=== PATIENT | female | born 1955 | race Caucasian/White ===

== ENCOUNTER → 2021-06-22 09:46 | Outpatient (CLI) | payer SELFPAY ==
--- NOTE | ~2021-06-22 | MR_ITS ---
EXAMINATION: MR renal wo con DATE: 06/22/2021 10:52 INDICATION: Asymptomatic microscopic hematuria. TECHNIQUE: Magnetic resonance imaging (MRI) of the abdomen was performed without intravenous contrast . Sequences included coronal T2-weighted FS FSE, coronal and axial FIESTA FS, coronal LAVA-flex, axia l LAVA, axial T2-weighted FSE, axial T1-weighted dual-echo FSPGR, axial STIR FSE, and axial DWI. COMPARISON: None. FINDINGS: There are cysts in the liver measuring up to 14 mm. The gallbladder is normal. Calcifications in the spleen are consistent with old granulomatous disease. The pancreas and adrenal glands are normal. The re is a 2 mm cyst in right kidney. There is severe atrophy of left kidney. There is a moderate-sized sliding hiatal hernia. There are no dilated loops of bowel. There are no pathologically enlarged lymp h nodes. There is no free intraperitoneal fluid. IMPRESSION: 1. Severe atrophy of left kidney. 2. Moderate-sized sliding hiatal hernia. Reviewed, dictated and finalized at location E. PROFESSOR
== END ==
PROVIDERS: PCP Family Medicine; Visit Provider Physician Assistant Medical
DX: R31.29 Other microscopic hematuria (principal); R93.5 Abnormal findings on diagnostic imaging of other abdominal regions, including retroperitoneum; K44.9 Diaphragmatic hernia without obstruction or gangrene
CPT/HCPCS: 74181

== ENCOUNTER → 2021-09-11 12:43 | Outpatient (CLI) | payer MEDICARE, SELFPAY ==
--- NOTE | ~2021-09-11 | CT_ITS ---
EXAMINATION: CT abdomen pelvis wo/w con DATE: 09/11/2021 13:33 INDICATION: Asymptomatic hematuria. Left renal atrophy. TECHNIQUE: Computed tomography (CT) of the abdomen and pelvis was performed without intravenous contr ast. CT of the abdomen and pelvis was then performed with a total of 130 mL Omnipaque-350 intravenous contrast using a double-bolus technique for simultaneous opacification of the renal parenchyma and r enal collecting system. Automated exposure control and iterative reconstruction technique were employ ed. The dose-length product was 1641.44 mGy-cm. COMPARISON: Renal MR dated 06/22/2021 FINDINGS: Mild discoid atelectasis in the left lower lobe. Calcified right middle lobe nodule along with multip le hepatic and splenic calcific lesions consistent with old granulomatous disease. Heart size is norm al. Atherosclerotic coronary artery calcific lesion. No pericardial or pleural effusion. Small to mod erate-sized sliding-type hiatal hernia. Multiple low-attenuation nonenhancing hepatic cysts measuring up to 1.2 cm in maximal diameter. Pancreas and bilateral adrenal glands are normal. Tiny nonenhancin g cyst at the upper pole of the right kidney. Severe left renal atrophy but with enhancement of the r emaining left renal parenchyma symmetric to that of the right kidney. No urolithiasis. Bilateral paulina l collecting systems and ureters are opacified in their entirety with no evident urothelial irregular ities. Bladder is normal. The uterus is not identified and has likely been surgically resected. Moder ate amount of stool scattered throughout the colon. No abnormal bowel wall thickening or obstruction. Normal appendix. No free intraperitoneal gas or fluid. No pathologically enlarged abdominal or pelvi c lymphadenopathy. Moderate spondylosis in the lower thoracic spine and lumbosacral junction with mil d intervening lumbar spondylosis. IMPRESSION: 1. Severe left renal atrophy. No evident urolithiasis nor lesions suspicious for malignancy. 2. Small to moderate-sized sliding-type hiatal hernia. Reviewed, dictated and finalized at location A. IMPRESSION: 1. Severe left renal atrophy. No evident urolithiasis nor lesions suspicious fo r malignancy. 2. Small to moderate-sized sliding-type hiatal hernia.
[2021-09-11 13:09] LABS: Estimated Glomerular Filt Rate > 60
== END ==
PROVIDERS: PCP Family Medicine
DX: R31.21 Asymptomatic microscopic hematuria (principal); N26.1 Atrophy of kidney (terminal); K44.9 Diaphragmatic hernia without obstruction or gangrene
CPT/HCPCS: 74178; Q9967

== ENCOUNTER 2022-03-03 11:43 | Observation (INO) | payer MEDICARE, SELFPAY ==
[2022-03-03] VITALS (10 sets, daily range): BP systolic 155–179; BP diastolic 73–94; PULSE 67–88; RESP 16–20; TEMP 36.1–36.9; O2SAT 97–100; BMI 25.2
--- NOTE | ~2022-03-03 | NM_ITS ---
EXAMINATION: NM stress w perf spect multi DATE: 03/04/2022 10:28 INDICATION: Chest pain TECHNIQUE: Rest images were obtained following intravenous administration of 10.8 mCi Tc99m tetrofosm in (Guidefitter). The patient performed an exercise activity. At peak exercise, 33.7 mCi Tc99m tetrofosmi n (Myoview) was administered intravenously, and stress images were obtained. Data was reconstructed i nto short axis and horizontal and vertical long axis SPECT images. Gated SPECT images were also obtai jesse. COMPARISON: None. FINDINGS: There is normal left ventricular perfusion without definite evidence of reversible or fixed perfusion abnormality to suggest ischemia or infarction. There is normal left ventricular chamber size, wall motion and ejection fraction. Left ventricular ejection fraction measures >70%. IMPRESSION: 1. Normal myocardial perfusion at rest and during stress. 2. Left ventricular ejection fraction measuring >70%. Reviewed, dictated and finalized at location A.
--- NOTE | ~2022-03-03 | XR_ITS ---
XR chest 1V portable 03/03/2022 12:35 Indication: Chest pain. Diaphoresis. Procedure: AP portable chest Comparison: No prior studies for comparison. Findings: Heart size normal. There are interstitial infiltrates in the mid and lower lungs. No pleura l effusion or pneumothorax. No acute osseous abnormality. Impression: 1: Bilateral interstitial infiltrates of the mid and lower lungs which may reflect mild edema or atyp ical pneumonia. Reviewed, dictated and finalized at location B. Impression: 1: Bilateral interstitial infiltrates of the mid and lower lungs which may refl ect mild edema or atypical pneumonia.
--- NOTE | 2022-03-03 11:48 | ECG_ITS ---
Measurements Intervals Ezel Rate: 88 P: 62 ID: 143 QRS: 31 QRSD: 86 T: 81 QT: 350 QTc: 425 Interpretive Statements SINUS RHYTHM LEFT ATRIAL ENLARGEMENT [-0.15mV P WAVE IN V1/V2] DIFFUSE NONSPECIFIC ST & T-WAVE ABNORMALITY ABNORMAL ECG NO PREVIOUS ECG AVAILABLE FOR COMPARISON Electronically Signed On 03-03-2022 16:18:48 CDT by Jackson Bennett M.D.
[2022-03-03 12:24] LABS: Basophils Absolute Auto 0.1 K/mm3 (0.0-0.1); Basophils Percent Auto 0.5 % (0.2-1.2); Eosinophils Absolute Auto 0.2 K/mm3 (0-0.3); Eosinophils Percent Auto 1.9 % (0-4.4); Hematocrit 45.5 % (37.0-47.0); Hemoglobin 15.4 g/dL (12.0-15.0); Immature Granulocyte Absolute 0.03 K/mm3 (0.00-0.031); Immature Granulocyte Percent A 0.3 % (0-0.5); Lymphocytes Percent Auto 18.6 % (18.3-44.2); Mean Corpuscular HGB Conc 33.8 g/dl (32-36); Mean Corpuscular Hemoglobin 28.9 pg (26-34); Mean Corpuscular Volume 85.4 fl (80-100); Mean Platelet Volume 9.9 fl (7.4-10.4); Monocytes Absolute Auto 0.3 K/mm3 (0.1-0.6); Monocytes Percent Auto 3.6 % (2.6-8.5); Neutrophils Absolute Auto 6.9 K/mm3 (1.3-6.7); Neutrophils Percent Auto 75.1 % (45.5-73.1); Platelet Count Result 297 k/mm3 (150-375); Red Blood Count 5.33 M/mm3 (4.2-5.4); Red Cell Distribution Width 12.3 % (11.5-14.5); White Blood Count 9.1 K/mm3 (4.5-10.0)
--- NOTE | 2022-03-03 12:32 | ED.GENADULT ---
HPI - General Adult General Chief complaint: Chest Pain Stated complaint: chest pain Time Seen by Provider: 03/03/22 12:06 History of Present Illness HPI narrative: This is a 66-year-old female with history of hypertension high cholesterol and tobacco use presents to ED after an episode of chest pain. The chest pain occurred in the evening 2 days ago. She was watching TV and then started to experience a stabbing pain on the left side of her chest that radiated to her neck into her arm. His 6 out 10 intensity, sudden in onset and constant. She took a Xanax but she was concerned it might be anxiety and after 45 minutes the pain had resolved. She never experienced pain like this before. There are no exacerbating or alleviating factors. She did become diaphoretic. She denies nausea vomiting or exertional component. She denies any other complaints over the last week and has been feeling well overall. She is not coming 2 days ago because the pain resolved but then she began worried as she spoke to her friends and they told her she might be having a heart attack. Related Data Allergies Allergy/AdvReac Type Severity Reaction Status Date / Time No Known Allergies Allergy Verified 03/03/22 12:04 Review of Systems Review of Systems: CONSTITUTIONAL: Denies night sweats. EYES: No eye pain ENT: Denies rhinorrhea CARDIOVASCULAR: Denies palpitations RESPIRATORY: Denies hemoptysis GASTROINTESTINAL: Denies hematemesis GENITOURINARY: Denies hematuria. SKIN: Denies rash MUSCULOSKELETAL: Denies myalgia. NEUROLOGIC: Denies weakness. PSYCHIATRIC: Denies delusions PMFSH Past Medical History Medical History (Updated 03/03/22 @ 15:15 by Chavez Lawrence MD) Anxiety Hypertension Left renal atrophy Mixed hyperlipidemia Seizure Surgical History Surgical History (Updated 03/03/22 @ 14:17 by Grecia Yoder PA-C) History of section History of hysterectomy Family History Family History Other Alcohol abuse by patient's mother Breast cancer Depression Diabetes mellitus FH: kidney cancer Heart disease Hypertension Social History Social History Social History: Surrogate medical decision maker: Code status: Full code. Tobacco type: cigarettes Alcohol intake: current Additional living arrangements comments: Lives in [place]. Additional occupation/education comments: Retired. Exam Narrative: APPEARANCE: No apparent distress. Head atraumatic. EYES: PERRLA/EOMI, NOSE: Normal no drainage NECK: Supple, Trachea midline RESPIRATORY: CTAB, No increased work of breathing. CARDIOVASCULAR: S1S2 appreciated ABDOMINAL: Soft, nontender, nondistended, MUSCULOSKELETAl: No obvious deformities NEURO: Alert. Moving 4/4 extremities SKIN:: Warm, dry. Normal color PSYCHIATRIC: Normal affect Course Vital Signs Vital signs: Vital Signs Temperature 98.5 F 03/03/22 11:54 Pulse Rate 88 03/03/22 11:54 Respiratory Rate 16 03/03/22 11:54 Blood Pressure 158/84 H 03/03/22 11:54 Pulse Oximetry 98 03/03/22 11:54 Temperature 98.5 F 03/03/22 11:54 Pulse Rate 87 03/03/22 12:03 Respiratory Rate 16 03/03/22 11:54 Blood Pressure 158/84 H 03/03/22 11:54 Pulse Oximetry 98 03/03/22 11:54 Medical Decision Making MDM Narrative Medical decision making narrative: This is a 66-year-old female presenting ED with an episode of chest pain 2 days ago. She has risk factors and a concerning story for ACS. EKG interpretation: Rhythm [sinus], Rate 88], [place] -[normal], TN -[normal], QRS [narrow], QTC [normal], T waves -[negative for concerning inversions], ST Segments - ST segment depressions in V4 through V6 Final interpretations: [Normal Sinus Rhythm] lab work was within normal limits. Initial troponin was negative. Chest x-ray showed bilateral interstitial infil
[2022-03-03] MEDS: ASPIRIN 81 MG CHEWABLE TABLET 324 MG PO (12:36)
[2022-03-03 12:38] LABS: Partial Thromboplastin Time 29.9 SECONDS (22.3-36.8)
[2022-03-03 12:39] LABS: Alanine Aminotransferase 17 U/L (6-35); Albumin Level 4.1 g/dL (3.5-5.1); Alkaline Phosphatase 94 U/L (38-126); Anion Gap 11 mmol/L (8-16); Aspartate Amino Transferase 22 U/L (14-36); Bilirubin,Total 0.4 mg/dL (0.2-1.3); Blood Urea Nitrogen 10 mg/dL (7-17); Calcium 8.6 mg/dL (8.4-10.2); Carbon Dioxide 22 mmol/L (22-30); Chloride 105 mmol/L (98-107); Estimated CRCL calculation 64 ml/min; Estimated Glomerular Filt Rate > 60; Glucose 105 mg/dL (65-110); Lipase 77 U/L (23-300); Potassium 3.8 mmol/L (3.4-5.0); Sodium 138 mmol/L (137-145)
[2022-03-03 12:51] LABS: Troponin I < 0.012 ng/mL (0.000-0.034)
--- NOTE | 2022-03-03 14:15 | PM.IMHP ---
H&P: HPI History of Present Illness Date/Time: 03/03/22 14:15 Chief Complaint: Chest pain. Narrative: This is a 66-year-old female smoker with hypertension and hyperlipidemia who presented to the emergency department from home for evaluation of chest pain. Two days ago simply while sitting down watching television she developed an aching and occasionally sharp and stabbing pain in the left anterior chest radiating into the left side of the neck and into the left arm. She was diaphoretic with the onset of the pain in her symptoms lasted approximately 45 minutes before resolving. Initially she thought she was anxious and took Xanax. After speaking with her family members about what happened, they encouraged her to come in for evaluation. With further questioning she mentions having a couple of similar episodes over the past 1 year however the symptoms were typically fleeting. The symptoms have never occurred with activity. Vital signs were stable on arrival to the emergency department and her labs were reassuring with negative troponin. EKG however showed diffuse nonspecific ST-T wave abnormalities and she is being admitted in this setting for further monitoring and Cardiology consultation. She has not had a recurrence of the discomfort in the last 2 days and overall she is feeling fine at this time. It should be noted that her chest x-ray showed findings of possible edema versus atypical pneumonia however she has no symptoms to suggest pulmonary infection. She specifically denies fever, chills, sweats, sinus congestion, sore throat, cough, pleuritic pain, orthopnea, paroxysmal nocturnal dyspnea, nausea, vomiting, and lower extremity edema. Review of Systems Review of Systems: Twelve systems were reviewed and are negative except for as per HPI. [facility] Past Medical History Medical History (Updated 03/03/22 @ 22:38 by Grecia Yoder PA-C) Anxiety Hypertension Left renal atrophy Mixed hyperlipidemia Single seizure Surgical History Surgical History (Updated 03/03/22 @ 14:17 by Grecia Yoder PA-C) History of section History of hysterectomy Family History Family History Mother Breast cancer Depression Alcohol abuse by patient's mother Hypertension Father Diabetes mellitus Hypertension FH: kidney cancer Social History Social History (Updated 03/03/22 @ 22:39 by Grecia Yoder PA-C) Social History: Surrogate medical decision maker: Vitor Ivory, brother. Code status: Full code. Smoking packs per day: 0.5 Smoking cigarettes per day: 10.0 Years smoked: 20 Smoking pack-years: 10.00 Smoking status: Current some day smoker Tobacco type: cigarettes Alcohol intake: never Substance use type: marijuana and other Other substance usage details: edibles Additional living arrangements comments: Lives in [place]. Additional occupation/education comments: Retired. Spiritual care concerns: No Has the Lack of Transportation Kept You From Medical Appointments or From Getting Medications?: No Within the Past 12 Months, Were You Worried Whether Your Food Would Run Out Before You Got Money to Buy More?: Never True What is Your Housing Situation Today?: I Have Housing Are You Worried That in the Next 2 Months, You May Not Have Your Own Housing to Live In?: No Do You Have Trouble Paying Your Heating Or Electricity Bill?: No Do You Have Trouble Paying For Medicines?: No Are You Currently Unemployed and Looking for Work?: No Highest Level of Education Completed: High School Diploma/GED Do You Have Trouble With Childcare or the Care of a Family Member?: No Meds Home Medications and Allergies Home Medications Medication Instructions Recorded Confirmed Type amlodipine 5 mg tablet 5 mg PO DAILY #30 tabs 08/02/21 03/03/22 Rx atorvastatin 20 mg tablet 20 mg PO DAILY #30 tabs 08/02/21 03/03/22 Rx sertraline 50 mg
[2022-03-03 15:09] LABS: NT Pro B Type Natriuretic Pept 94 pg/mL (5-100)
[2022-03-03 15:13] LABS: Troponin I < 0.012 ng/mL (0.000-0.034)
--- NOTE | 2022-03-03 15:33 | PM.CNCAR ---
Assessment and Plan Assessment and plan (1) Chest pain: Code(s): R07.9 - Chest pain, unspecified Status: Acute Assessment and Plan: Resting pain, probably anxiety related. EKG shows sinus rhythm with LVH with ST-T changes. 1st Troponin negative. Trend troponin. If negative, obtain stress nuclear in AM. (2) Tobacco abuse: Code(s): Z72.0 - Tobacco use Status: Acute Assessment and Plan: Counseled regarding smoking cessation. (3) Mixed hyperlipidemia: Code(s): E78.2 - Mixed hyperlipidemia Status: Acute Assessment and Plan: Advise to maintain a low saturated fat diet. On Atorvastatin. (4) Hypertension: Code(s): I10 - Essential (primary) hypertension Status: Acute Assessment and Plan: High. Monitor and adjust BP medication as needed. Obtain echo. (5) Anxiety: Code(s): F41.9 - Anxiety disorder, unspecified Status: Acute History of Present Illness History of Present Illness Consult date/time: 03/03/22 15:33 Consult reason: chest pain Reason For Visit: Cardiac Eval Narrative: 66 yr old woman presents to ER with chest pain. She has a history of hypertension, dyslipidemia, smoking, anxiety. Reports that 2 nights ago she had resting sharp chest pain radiating down left arm and to jaw, and sweating lasting 15 minutes. No recurrence but she wanted to get evaluated so she came in today. She can walk 3 miles and more limted by knee pains than [place]. She smokes 1/2 ppd. Admits to having stress/anxiety and worse given both her parents in their mid 80's are aging. Denies orthopnea, PND, edema, dizziness, palpitations. Review of Systems Review of Systems: All systems reviewed & are unremarkable except as noted in HPI and below Constitutional: Constitutional: Reports as per HPI, Denies chills and Denies fever(s) Cardiovascular: Cardiovascular: Reports as per HPI, Reports chest pain, Denies irregular heart rhythm, Denies leg edema and Denies lightheadedness Respiratory: Respiratory: Reports as per HPI and Denies dyspnea Gastrointestinal: Gastrointestinal: Reports as per HPI and Denies abdominal pain Genitourinary: Genitourinary: Reports as per HPI and Denies dysuria Musculoskeletal: Musculoskeletal: Reports as per HPI and Reports arthralgias Neurologic: Reports as per HPI, Denies dizziness and Denies syncope [facility] Past Medical History Medical History (Updated 03/03/22 @ 15:15 by Chavez Lawrence MD) Anxiety Hypertension Left renal atrophy Mixed hyperlipidemia Seizure Surgical History Surgical History (Updated 03/03/22 @ 14:17 by Grecia Yoder PA-C) History of section History of hysterectomy Family History Family History Other Alcohol abuse by patient's mother Breast cancer Depression Diabetes mellitus FH: kidney cancer Heart disease Hypertension Social History Social History (Updated 03/03/22 @ 14:22 by Grecia Yoder PA-C) Social History: Surrogate medical decision maker: Code status: Full code. Tobacco type: cigarettes Alcohol intake: current Additional living arrangements comments: Lives in [place]. Additional occupation/education comments: Retired. Meds Home Medications and Allergies Home Medications Medication Instructions Recorded Confirmed Type amlodipine 5 mg tablet 5 mg PO DAILY #30 tabs 08/02/21 08/02/21 Rx atorvastatin 20 mg tablet 20 mg PO DAILY #30 tabs 08/02/21 08/02/21 Rx sertraline 50 mg tablet 50 mg PO DAILY #30 tabs 08/02/21 08/02/21 Rx lisinopril 10 mg tablet 10 mg PO DAILY #90 tabs 09/11/21 Rx Allergies Allergy/AdvReac Type Severity Reaction Status Date / Time No Known Allergies Allergy Verified 03/03/22 12:04 Vital Signs Vital Signs - 24 hr 03/03/22 11:54 03/03/22 12:03 03/03/22 15:10 Temperature 98.5 F Pulse Rate 88 87 67 Respiratory Rate 16 16 Blood Pres
--- NOTE | 2022-03-03 15:46 | ADMGEN ---
This patient, Mandy Ivory, was admitted to IMU Room 201-01. Patient/family oriented to hospital policies and general routines including ID bracelet, bed and alarms, visiting hours, pain management, procedures, bathroom and other care routines, personal items, smoking policy, room service/diet, and visiting hours. Information on how to activate the Rapid Response Team has been discussed. Patient/Family are encouraged to report perceived risks to care and to ask questions if they do not understand what they are told or what they should do.
[2022-03-03 18:37] LABS: Troponin I < 0.012 ng/mL (0.000-0.034)
[2022-03-04] VITALS (8 sets, daily range): BP systolic 138–147; BP diastolic 62–85; PULSE 56–73; RESP 18–20; TEMP 36.2–36.6; O2SAT 98–100
--- NOTE | 2022-03-04 | ECHO_ITS ---
Patient Info Name: Mandy Ivory Age: 66 years : 1955 Gender: Female Ht: 69 in Wt: 169 lbs BSA: 1.94 m2 HR: 56 bpm BP: 147 / 62 mmHg Heart Rhythm: Sinus Rhythm Technical Quality: Fair Exam Date: 03/04/2022 7:55 AM Exam Location: [facility] [place] Card Pulmonary Patient Status: Outpatient Admit Date: 03/03/2022 Staff Ordering Physician: Cruz Nguyen DO Outside Sales Associate: Karen Stewart RDCS Attending Provider: Nj Barahona MD Referring Physician: Patrick JAIME; Exam Type: CA echo doppler color flow Study Info Indications - hypertension R07.9 - Chest pain, unspecified Complete two-dimensional, color flow and Doppler transthoracic echocardiogram is performed. Summary 1. Complete two-dimensional, color flow and Doppler transthoracic echocardiogram is performed. 2. Left ventricular chamber dimension is normal. 3. Left ventricular systolic function is normal, estimated at 60-65%. 4. There is mildly increased left ventricular wall thickness. 5. The left ventricular diastolic function is grade I diastolic dysfunction. 6. E/e' 13 is mildly elevated. 7. No pulmonary hypertension, estimated pulmonary arterial systolic pressure is 30 mmHg. Left Ventricle E/e' 13 is mildly elevated. Left ventricular chamber dimension is normal. Left ventricular systolic function is normal, estimated at 60-65%. There is mildly increased left ventricular wall thickness. The left ventricular diastolic function is grade I diastolic dysfunction. Right Ventricle Right ventricular systolic function is normal and with normal TAPSE 1.9 cm. Right ventricular chamber dimension is normal. Left Atria Left atrial chamber dimension is normal. Right Atria Right atrial chamber dimension is normal. Aortic Valve The aortic valve is trileaflet. There is no aortic valve stenosis. There is no aortic valve regurgitation. Pulmonic Valve There is no pulmonic regurgitation. Mitral Valve There is no mitral valve stenosis. There is no mitral valve regurgitation. Tricuspid Valve There is no tricuspid valve regurgitation. No pulmonary hypertension, estimated pulmonary arterial systolic pressure is 30 mmHg. Pericardium/Pleural There is no pericardial effusion. Inferior Vena Cava Normal inferior vena cava with >50% collapse upon inspiration consistent with normal right atrial pressure, 5 mmHg. Aorta The aortic root size at the sinus of Valsalva is normal. Left Ventricular Outflow Tract Name Value Normal LVOT 2D LVOT Diameter 2.0 cm LVOT Doppler LVOT Peak Gradient 2 mmHg LVOT Mean Gradient 1 mmHg LVOT VTI 16 cm LVOT VTI/AV VTI Ratio 0.6 LVOT Stroke Volume 51 ml LVOT CO 3.0 l/min LVOT CI 1.5 l/min/m2 Pulmonic Valve Name Value Normal
[2022-03-04 05:09] LABS: Hematocrit 42.6 % (37.0-47.0); Hemoglobin 14.3 g/dL (12.0-15.0); Mean Corpuscular HGB Conc 33.6 g/dl (32-36); Mean Corpuscular Hemoglobin 27.9 pg (26-34); Mean Platelet Volume 10.3 fl (7.4-10.4); Platelet Count Result 286 k/mm3 (150-375); Red Blood Count 5.13 M/mm3 (4.2-5.4); White Blood Count 7.5 K/mm3 (4.5-10.0)
[2022-03-04 05:20] LABS: Alanine Aminotransferase 13 U/L (6-35); Albumin Level 3.6 g/dL (3.5-5.1); Alkaline Phosphatase 82 U/L (38-126); Anion Gap 11 mmol/L (8-16); Aspartate Amino Transferase 19 U/L (14-36); Bilirubin,Total 0.6 mg/dL (0.2-1.3); Blood Urea Nitrogen 10 mg/dL (7-17); Calcium 8.3 mg/dL (8.4-10.2); Carbon Dioxide 24 mmol/L (22-30); Chloride 103 mmol/L (98-107); Cholesterol 159 mg/dL (0-200); Estimated CRCL calculation 72 ml/min; Estimated Glomerular Filt Rate > 60; Glucose 86 mg/dL (65-110); HDL Direct 32 mg/dL; Potassium 3.3 mmol/L (3.4-5.0); Sodium 138 mmol/L (137-145); Triglycerides 112 mg/dL (<150)
[2022-03-04 05:31] LABS: LDL Cholesterol Direct 102 mg/dL
--- NOTE | 2022-03-04 08:06 | PM.PNCARD ---
Progress Note: A&P Assessment and Plan (1) Chest pain: Code(s): R07.9 - Chest pain, unspecified Status: Acute Assessment and Plan: Resting pain, probably anxiety related. EKG shows sinus rhythm with LVH with ST-T changes. All 3 sets of Troponin are negative. Obtain stress nuclear in today. If negative, may d/c home and f/u with me in 1-2 weeks. (2) Tobacco abuse: Code(s): Z72.0 - Tobacco use Status: Acute Assessment and Plan: Counseled regarding smoking cessation. (3) Hypertension: Code(s): I10 - Essential (primary) hypertension Status: Acute Assessment and Plan: High. Lisinopril causes cough. Start Losartan 25 mg daily. Obtain echo today. (4) Mixed hyperlipidemia: Code(s): E78.2 - Mixed hyperlipidemia Status: Acute Assessment and Plan: On Atorvastatin. Advise to maintain a low saturated fat diet. (5) Anxiety: Code(s): F41.9 - Anxiety disorder, unspecified Status: Acute Subjective Date/time seen: 03/04/22 08:06 Interval history: Denies any chest pain or sob. Exam Const: General: cooperative, healthy appearing and comfortable Resp: Auscultation: clear to auscultation bilaterally, no crackles, no rales, no rhonchi and no wheezes Cardio: Jugular venous distension: no JVD Rate: regular rate Rhythm: regular rhythm Heart sounds: no murmurs Peripheral pulses: dorsalis pedis present GI: GI Palp: No abdominal tenderness and Yes Soft to palpation Neuro: General: oriented to person, oriented to place and oriented to time Extrem: Right lower extremity: no edema Left lower extremity: no edema Objective Data Vital Signs Vital Signs: Vital Signs - 24 hr 03/03/22 11:54 03/03/22 12:03 03/03/22 15:10 Temperature 98.5 F Pulse Rate 88 87 67 Respiratory Rate 16 16 Blood Pressure 158/84 H 171/94 H Pulse Oximetry 98 97 Oxygen Delivery 03/03/22 16:26 03/03/22 16:00 03/03/22 16:00 Temperature 96.9 F L Pulse Rate 68 69 Respiratory Rate 20 Blood Pressure 168/73 H Pulse Oximetry 98 Oxygen Delivery Room Air 03/03/22 18:00 03/03/22 19:59 03/03/22 20:00 Temperature 98.3 F Pulse Rate 68 67 69 Respiratory Rate 18 Blood Pressure 179/78 H Pulse Oximetry 100 Oxygen Delivery 03/03/22 20:00 03/03/22 21:38 03/03/22 23:17 Temperature 97.3 F L Pulse Rate 69 68 68 Respiratory Rate 18 18 Blood Pressure 155/76 H Pulse Oximetry 100 100 Oxygen Delivery Room Air 03/04/22 00:00 03/04/22 00:00 03/04/22 01:43 Temperature Pulse Rate 62 62 61 Respiratory Rate 18 Blood Pressure Pulse Oximetry 100 Oxygen Delivery Room Air 03/04/22 03:57 03/04/22 04:00 03/04/22 04:00 Temperature 98 F Pulse Rate 65 62 62 Respiratory Rate 20 20 Blood Pressure 147/62 H Pulse Oximetry 100 100 Oxygen Delivery Room Air 03/04/22 05:54 Temperature Pulse Rate 56 L Respiratory Rate Blood Pressure Pulse Oximetry Oxygen Delivery Intake/Output Intake/Output: Intake & Output 03/01/22 03/02/22 03/03/22 03/04/22 23:59 23:59 23:59 23:59 Intake Total 540 Balance 540 Meds/Results Medications: Active Medications Generic Name Dose Route Start Last Admin Trade Name Freq PRN Reason Stop Dose Admin Amlodipine Besylate 5 mg 03/04/22 09:00 Amlodipine Besylate 5 Mg Tablet PO DAILY [facility] Aspirin 81 mg 03/04/22 09:00 Aspirin 81 Mg Enteric Tablet PO DAILY [facility] Atorvastatin Calcium 20 mg 03/04/22 09:00 Atorvastatin 20 Mg Tablet PO DAILY [facility] Losartan Potassium 25 mg 03/04/22 09:00 Losartan Potassium 25 Mg Tablet PO DAILY [facility] Perflutren Lipid Microsphere 0 ml 03/03/22 14:44 Perflutren Lipid Microspheres 1.5 Ml Vial Diluted To 10 Ml Total Volume IV PUSH 03/05/22 14:44 ONCE PRN adequate visualization Protocol Sertraline HCl 50 mg 03/04/22 09:00 Sertraline Hcl 50 Mg Tablet PO DA
[2022-03-04] MEDS: ATORVASTATIN 20 MG TABLET PO (08:17)
[2022-03-04] MEDS: amLODIPine BESYLATE 5 MG TABLET PO (08:17)
[2022-03-04] MEDS: LOSARTAN POTASSIUM 25 MG TABLET PO (08:17)
[2022-03-04] MEDS: SERTRALINE HCL 50 MG TABLET PO (08:17)
[2022-03-04] MEDS: ASPIRIN 81 MG ENTERIC TABLET PO (08:17)
--- NOTE | 2022-03-04 08:30 | EST_ITS ---
Patient Info Name: Mandy Ivory Age: 66 years : 1955 Gender: Female Ht: 69 in Wt: 171 lbs BSA: 1.95 m2 HR: 63 bpm BP: 159 / 66 mmHg Heart Rhythm: Sinus Rhythm Exam Date: 03/04/2022 9:37 AM Exam Location: [facility] Stress Patient Status: Outpatient Admit Date: 03/03/2022 Staff Ordering Physician: Cruz Nguyen DO Attending Provider: Nj Barahona MD Exercise Technologist: Nunu Harmon CT Exercise Physician: Cruz Nguyen DO Exam Type: CA stress test treadmill w NM Study Info Indications R07.9 - Chest pain, unspecified A nuclear stress test was performed. Summary 1. 1. Negative Hemant exercise stress test for ischemic ST changes by ECG criteria. 2. 2. Good functional capacity, achieving 9 METs of workload. 3. 3. Baseline hypertension with hypertensive response to exercise. 4. 4. Appropriate HR response to exercise. 5. 5. Appropriate HR recovery at 1 minute post exercise. 6. 6. Nuclear scan to follow and will be reported separately. Please correlate with it. 7. 7. Patient informed of the above results. Protocol: Ehmant Stress ECG Details Stage: REST Duration (min): 1 min : 46 sec Speed (mph): 0.0 Grade (%): 0 HR (bpm): 66 SBP (mmHg): 159 DBP (mmHg): 66 METS: --- Stage: REST Duration (min): 12 min : 47 sec Speed (mph): 0.0 Grade (%): 0 HR (bpm): 59 SBP (mmHg): 159 DBP (mmHg): 66 METS: --- Stage: STAGE 1 Duration (min): 1 min : 0 sec Speed (mph): 1.7 Grade (%): 10 HR (bpm): 87 SBP (mmHg): 159 DBP (mmHg): 66 METS: --- Stage: STAGE 1 Duration (min): 2 min : 0 sec Speed (mph): 1.7 Grade (%): 10 HR (bpm): 90 SBP (mmHg): 159 DBP (mmHg): 66 METS: --- Stage: STAGE 1 Duration (min): 3 min : 0 sec Speed (mph): 1.7 Grade (%): 10 HR (bpm): 99 SBP (mmHg): 205 DBP (mmHg): 81 METS: --- Stage: STAGE 2 Duration (min): 1 min : 0 sec Speed (mph): 2.5 Grade (%): 12 HR (bpm): 112 SBP (mmHg): 216 DBP (mmHg): 84 METS: --- Stage: STAGE 2 Duration (min): 2 min : 0 sec Speed (mph): 2.5 Grade (%): 12 HR (bpm): 120 SBP (mmHg): 213 DBP (mmHg): 89 METS: --- Stage: STAGE 2 Duration (min): 3 min : 0 sec Speed (mph): 2.5 Grade (%): 12 HR (bpm): 129 SBP (mmHg): 213 DBP (mmHg): 89 METS: --- Stage: STAGE 3 Duration (min): 1 min : 0 sec Speed (mph): 3.4 Grade (%): 14 HR (bpm): 141 SBP (mmHg): 213 DBP (mmHg): 89 METS: --- Stage: STAGE 3 Duration (min): 1 min : 14 sec Speed (mph): 3.4 Grade (%): 14 HR (bpm): 141 SBP (mmHg): 213 DBP (mmHg): 89 METS: --- Stage: RECOVERY Duration (min): 0 min : 45 sec Speed (mph): 0.0 Grade (%): 0 HR (bpm): 132 SBP (mmHg): 253 DBP (mmHg): 89 METS: --- Stage: RECOVERY Duration (min): 1 min : 45 sec Speed (mph): 0.0 Grade (%)
--- NOTE | 2022-03-04 08:50 | PC.NURSE ---
Pt to cardiology lab for stress test via wheelchair
--- NOTE | 2022-03-04 10:40 | PC.NURSE ---
Pt returned from nuclear medicine stress test via wheelchair. No issues noted
[2022-03-04] MEDS: POTASSIUM CHLORIDE 20 MEQ PACKET (FOR LIQUID) 40 MEQ PO (11:22)
--- NOTE | 2022-03-04 11:34 | PM.DS ---
DS: Admitting Diagnosis Discharge Date March 04, 2022 Admitting Diagnosis chest pain DS: Discharge Diagnosis Discharge Diagnosis (1) Chest pain: Code(s): R07.9 - Chest pain, unspecified Status: Acute (2) Abnormal EKG: Code(s): R94.31 - Abnormal electrocardiogram [ECG] [EKG] Status: Acute (3) Hypertension: Code(s): I10 - Essential (primary) hypertension Status: Acute (4) Mixed hyperlipidemia: Code(s): E78.2 - Mixed hyperlipidemia Status: Acute DS: Summary Hospital Course Hospital Course: patient came in with chest pain. Cardiac workup was essentially negative. Blood pressure was little high should be put on losartan in addition to her home meds. Otherwise she is stable and can be discharged. Follow up with Dr. Nguyen Cardiology. Time Spent with Patient Time attestation: Total time spent providing and/or coordinating discharge services: Exam Narrative: General: Well-developed female sitting in a chair at the side of the bed in no distress. Weight: 77.6 kilograms. BMI: 25.3. HEENT: PERRL, EOMI. Sclera anicteric. Oral mucosa moist. Oropharynx clear. Neck: Supple. No JVD or obvious carotid bruits. Respiratory: Lungs are clear to auscultation bilaterally. Cardiovascular: Regular rate and rhythm with S1-S2. No tenderness to palpation over the chest wall. Gastrointestinal: Abdomen is soft, nontender, and nondistended with positive bowel sounds. Skin: Warm and dry. No rash or lesions on limited exam. Extremities: No cyanosis, clubbing, or edema. Radial and pedal pulses intact. Neurological: Alert. Cranial nerves 2-12 are grossly intact. No gross focal deficits to casual conversation. Psychiatric: Pleasant and cooperative with normal mood and affect. Judgment and insight intact. DS: Data Data Completed and Pending Labs on day of discharge: Labs from last 24 hours 03/04/22 03/04/22 03/04/22 04:30 04:30 04:30 WBC 7.5 RBC 5.13 Hgb 14.3 Hct 42.6 MCV 83.0 MCH 27.9 MCHC 33.6 RDW 12.0 Plt Count 286 MPV 10.3 Immature Gran % (Auto) Neut % (Auto) Lymph % (Auto) Kay % (Auto) Eos % (Auto) Baso % (Auto) Lymph # (Auto) Kay # (Auto) Eos # (Auto) Baso # (Auto) Abs Immat Gran (auto) Absolute Neuts (auto) Absolute Nucleated RBC Nucleated RBC % PT INR APTT Sodium 138 Potassium 3.3 L Chloride 103 Carbon Dioxide 24 Anion Gap 11 BUN 10 Creatinine 0.70 Estim Creat Clear Calc 72 Estimated GFR > 60 Glucose 86 Calcium 8.3 L Magnesium 2.0 Total Bilirubin 0.6 AST 19 ALT 13 Alkaline Phosphatase 82 Troponin I NT-Pro-B Natriuret Pep Total Protein 6.0 L Albumin 3.6 Triglycerides 112 Cholesterol 159 LDL Cholesterol Direct 102 HDL Direct 32 Lipase TSH (Reflex) 1.710 03/03/22 03/03/22 03/03/22 17:56 14:43 14:43 WBC RBC Hgb Hct MCV MCH MCHC RDW Plt Count MPV Immature Gran % (Auto) Neut % (Auto) Lymph % (Auto) Kay % (Auto) Eos % (Auto) Baso % (Auto) Lymph # (Auto) Kay # (Auto) Eos # (Auto) Baso # (Auto) Abs Immat Gran (auto) Absolute Neuts (auto) Absolute Nucleated RBC Nucleated RBC % PT INR APTT Sodium Potassium Chloride Carbon Dioxide Anion Gap BUN Creatinine Estim Creat Clear Calc Estimated GFR Glucose Calcium Magnesium Total Bilirubin AST ALT Alkaline Phosphatase Troponin I < 0.012 < 0.012 NT-Pro-B Natriuret Pep 94 Total Protein Albumin Triglycerides Cholesterol LDL Cholesterol Direct HDL Direct Lipase TSH (Reflex) 03/03/22 03/03/22 03/03/22 12:19 12:19 12:19 WBC 9.1 RBC 5.33 Hgb 15.4 H Hct 45.5 MCV 85.4 MCH 28.9 MCHC 33.8 RDW 12.3 Plt Count 297 MPV 9.9
== END 2022-03-04 12:34 | disposition home or self-care (01) ==
LOC: ANHED 12:42 → ANHIMU 15:15
PROVIDERS: Emergency Medicine; Physician Assistant; Admitting Provider Internal Medicine; Emergency Provider Emergency Medicine; PCP Family Medicine; Visit Provider Chiropractor
DX: R07.9 Chest pain, unspecified (principal); R94.31 Abnormal electrocardiogram [ECG] [EKG]; I51.89 Other ill-defined heart diseases; E78.2 Mixed hyperlipidemia; E78.00 Pure hypercholesterolemia, unspecified; R91.8 Other nonspecific abnormal finding of lung field; R61 Generalized hyperhidrosis; F41.9 Anxiety disorder, unspecified; F17.210 Nicotine dependence, cigarettes, uncomplicated; F10.90 Alcohol use, unspecified, uncomplicated; Z87.898 Personal history of other specified conditions; Z79.82 Long term (current) use of aspirin; Z79.899 Other long term (current) drug therapy; Z82.49 Family history of ischemic heart disease and other diseases of the circulatory system; Z84.89 Family history of other specified conditions
CPT/HCPCS: 36415; 71045; 78452; 80053; 80061; 83690; 83735; 83880; 84443; 84484; 85025; 85027; 85610; 85730; 93005; 93017; 93306; 99285; A9270; A9502; G0378

== ENCOUNTER → 2023-04-30 09:13 | Outpatient (CLI) | payer MEDICARE, SELFPAY ==
--- NOTE | ~2023-04-30 | MMUS_ITS ---
EXAMINATION: MM diagnostic eduar BI w sameera, US breast BI limited HISTORY: Mastodynia TECHNIQUE: Full-field and spot ML, MLO and CC 3-D tomosynthesis images of both breasts were performed and synthetic 2-D images were generated. CAD analysis was submitted and interpreted. High resolution bilateral upper outer and lower-outer quadrant breast ultrasound was performed. COMPARISON: 11/06/2008 and 06/25/2007 outside bilateral mammogram examinations BREAST PARENCHYMAL COMPOSITION: There are scattered areas of fibroglandular density. FINDINGS: MAMMOGRAPHIC FINDINGS: Bilateral partially obscured subcentimeter nodular densities suggested in the outer aspect of each br east ultrasound examination was performed for further evaluation. No or architectural distortion, malignant calcification, skin thickening or retraction of either jerome st is detected. ULTRASOUND: Right breast: 9:00 5 cm from nipple: 1.8 x 4.4 x 5 mm cyst 9:00 4.5 cm from nipple: 3.3 x 3.6 mm hypoechoic area without internal vascularity or posterior shado wing 9:00 4 cm from nipple: 2.7 x 4.4 x 6.4 mm parallel circumscribed hypoechoic lesion without internal v ascularity or posterior shadowing 10:00 3 cm from nipple: 6.5 x 5.4 x 8 mm heterogeneous mixed solid and fatty lesion, without suspicio us shadowing 6 month follow-up mammographic and ultrasound examination of the right breast is recommended. Left breast: 1:00 5 cm from nipple: Oval circumscribed 2.9 x 4.4 mm hypoechoic lesion without internal vascularity or posterior shadowing, likely benign 2:00 5 cm from nipple: Septated approximately 4.2 x 7 mm cyst, with through transmission posterior en hancement, no internal vascularity, benign in appearance 6:00 subareolar area: 2.2 x 3.4 mm cyst IMPRESSION: 1. Probable benign findings 2. 6 month diagnostic right mammogram and right breast ultrasound follow-up are recommended BI-RADS category 3, probably benign findings. Reviewed, dictated and finalized at location A. LINE FIELD OPERATOR IMPRESSION: 1. Probable benign findings 2. 6 month diagnostic right mammogram and right breast ultrasound follow-up are recommended BI-RADS category 3, probably benign findings.
== END ==
PROVIDERS: PCP Nurse Practitioner Adult Health; Visit Provider Nurse Practitioner Adult Health
DX: N64.4 Mastodynia (principal); R92.8 Other abnormal and inconclusive findings on diagnostic imaging of breast
CPT/HCPCS: 76642; 77062; 77066; G0279

== ENCOUNTER 2023-07-23 11:01 | Outpatient (CLI) | payer MEDICARE, SELFPAY ==
--- NOTE | ~2023-07-23 | DEXA_ITS ---
Bone Density Report Name: ASHA KANG Age: 67 Sex: Female Ethnicity: White Date of : 1955 Indication: postmenopausal; screening for osteoporosis; hysterectomy; Referring Provider: Neymar Noel Study: Bone densitometry was performed. Exam Date: July 23, 2023 Accession number: [id number] Bone Density: Region BMD T-score Z-score Classification AP Spine (L1-L4) 1.009 -0.3 1.5 Normal Femoral Neck (Left) 0.620 -2.1 -0.4 Osteopenia Total Hip (Left) 0.736 -1.7 -0.4 Osteopenia Femoral Neck (Right) 0.671 -1.6 0.0 Osteopenia Total Hip (Right) 0.815 -1.0 0.3 Normal Total Hip Mean 0.776 -1.4 -0.1 Osteopenia World Health Organization criteria for BMD impression classify patients as: Normal (T-score at or above -1.0), Osteopenia (T-score between -1.0 and -2.5), or Osteoporosis (T-score at or below -2.5). 10-year Fracture Risk(1): Major Osteoporotic Fracture 11% Hip Fracture 1.9% Reported Risk Factors: [place] (), Neck BMD=0.620, BMI=26.5 (1) FRAX(R) Version 3.08. Fracture probability calculated for an untreated patient. Fracture probability may be lower if the patient has received treatment. Clinical Information Provided by Patient: Has the following medical conditions: Hysterectomy Patient maximum height was 68.5 Menopause Age: 51 No regular weight bearing exercise Does not regularly consume dairy products Drinks caffeinated beverages Onset of menses at age 14 Number of children 2 Impression: The patient has low bone mass, based on the Left Femoral Neck T-score. The patient has an estimated ten-year risk of hip fracture of 1.9% and an estimated ten-year risk of major fracture of 11%, based on the WHO FRAX algorithm. Discussion: BONE DENSITY IS LOW AT ONE OR MORE SKELETAL SITES. This patient's lowest T-score is low at one or more skeletal sites. It meets the World Health Organization's (WHO) criteria for ?low bone mass? (T-score between -1.0 and -2.5). The patient's 10-year risk of fracture as calculated by FRAX is less than the threshold where pharmacological therapy is recommended by the National Osteoporosis Foundation (NOF). However, all treatment decisions require clinical judgment and consideration of individual patient factors, including patient preferences, comorbidities, previous drug use, risk factors not captured in the FRAX model (e.g., frailty, falls, vitamin D deficiency, increased bone turnover, interval significant decline in bone density) and possible under or overestimation of fracture risk by FRAX. The patient should follow a healthful lifestyle (good nutrition with adequate calcium and vitamin D, and appropriate weight-bearing exercise). Follow-Up: Consider repeating this study in 2 to 3 years to reassess this patient's status, or sooner if there is some new
== END 2023-07-23 11:02 ==
LOC: MICIMG 11:02
PROVIDERS: PCP Family Medicine; Visit Provider Nurse Practitioner Family
DX: Z78.0 Asymptomatic menopausal state (principal); Z91.89 Other specified personal risk factors, not elsewhere classified; M85.852 Other specified disorders of bone density and structure, left thigh; M85.851 Other specified disorders of bone density and structure, right thigh
CPT/HCPCS: 77080

== ENCOUNTER 2023-11-03 09:09 | Outpatient (CLI) | payer MEDICARE, SELFPAY ==
--- NOTE | ~2023-11-03 | MMUS_ITS ---
EXAMINATION: MM diagnostic eduar RT w sameera, US breast RT limited HISTORY: Six-month follow-up of right breast TECHNIQUE: 3-D tomosynthesis images of the right breast were performed and synthetic 2-D images were generated. CAD analysis was submitted and interpreted. High resolution limited right breast ultrasoun d was performed. COMPARISON: 04/30/2023 FINDINGS: MAMMOGRAPHIC FINDINGS: There are scattered fibroglandular densities. Parenchymal pattern of the right breast is unchanged. Small partially obscured nodular opacities are present at the outer right breast, essentially stable from prior exam. No suspicious interval change. No suspicious mesenteric or calcification or distortion. ULTRASOUND: At the 9:00 position right breast, 5 cm from nipple, there is a 3 mm hypoechoic circumscribed mass, u nchanged. Additional 5 mm probable cyst at the right breast 9:00 position, also 5 cm from the nipple, is also unchanged. 8 mm possible lymph node is similar to prior exam as well, 3 cm from the nipple a t the 9:00 position. At the 10:00 position right breast, 3 cm from the nipple, there is a stable 8 x 6 mm mixed echogenicity small mass, with hypoechoic areas and fatty components, essentially unchanged . IMPRESSION: Stable mammographic and sonographic evaluation of the right breast. Stable subcentimeter probable be nign lesions identified in the outer right breast sonographically. Recommend additional 6 month repea t ultrasound to assure continued stability of these findings. BI-RADS category 3, probably benign findings. Reviewed, dictated and finalized at location . IMPRESSION: Stable mammographic and sonographic evaluation of the right breast. Stable sub centimeter probable benign lesions identified in the outer right breast sonogra phically. Recommend additional 6 month repeat ultrasound to assure continued st ability of these findings. BI-RADS category 3, probably benign findings.
== END 2023-11-03 09:10 ==
LOC: MICIMG 09:10
PROVIDERS: PCP Nurse Practitioner Family; Visit Provider Nurse Practitioner Family
DX: N64.4 Mastodynia (principal); R92.8 Other abnormal and inconclusive findings on diagnostic imaging of breast
CPT/HCPCS: 76642; 77061; 77065; G0279

== ENCOUNTER 2023-11-05 22:23 | Inpatient (IN) | payer MEDICARE, SELFPAY ==
--- NOTE | ~2023-11-05 | XR_ITS ---
Portable chest x-ray Comparison: 11/09/2023 Clinical History: Left effusion Findings: Bryfv-wu-ybffppps left pleural effusion present with probable left basilar atelectasis. Ca lcified right basilar granuloma present. Cardiomediastinal silhouette is stable. Bones and soft tiss ues are unremarkable. Impression: Wbfrn-yi-scmkzvin left pleural effusion with left basilar atelectasis. Correlate clinically for pneum onia. Reviewed, dictated and finalized at location . Impression: [id number]-[id number] left pleural effusion with left basilar atelectasis. Correlat e clinically for pneumonia.
--- NOTE | ~2023-11-05 | CT_ITS ---
Clinical Indication: Chest pain CT Scan of the Chest with Contrast: Technique: Contiguous sections were acquired throughout the chest after intravenous administration of 100 cc of Omnipaque 350. Dose reduction technique was used on this scan by utilizing automated expos ure control and iterative reconstruction technique. The dose-length product (DLP) was 272.11 mGy-cm. Findings: There is no evidence of any significant mediastinal, hilar or axillary lymphadenopathy. There is no f illing defect in the pulmonary arterial tree to suggest pulmonary embolus. There is no evidence of ao rtic dissection or aneurysm. No pericardial effusion. There is minimal left pleural effusion with left basilar atelectatic change. There is linear scarring or atelectasis right lung base. Several calcified granulomas are noted. Images through the upper abdomen reveal no abnormalities. Impression: No evidence of pulmonary embolus, aortic dissection, or aortic aneurysm. Minimal left pleural effusion with left basilar atelectatic change. Reviewed, dictated and finalized at [facility]. Impression: No evidence of pulmonary embolus, aortic dissection, or aortic aneurysm. Minimal left pleural effusion with left basilar atelectatic change.
--- NOTE | ~2023-11-05 | XR_ITS ---
EXAMINATION: XR chest 2V Exam Date/Time: 11/05/2023 22:49 CDT HISTORY: lt sided chest pain and sob x2 days Comparison: 03/03/2022. RESULT: Lines, tubes, and devices: None. Lungs and pleura: Linear and patchy subsegmental left basilar opacities. Granulomatous calcification . Cardiomediastinal silhouette: Stable. Other: No acute osseous or upper abdominal finding. IMPRESSION: Subsegmental left basilar atelectasis or consolidation. Reviewed, dictated and finalized at location K.
--- NOTE | ~2023-11-05 | US_ITS ---
EXAMINATION: US thoracentesis DATE: 11/10/2023 16:51 INDICATION: pleural effusion TECHNIQUE: The procedure and its risks, benefits, and alternatives were discussed with the patient. P otential risks discussed included bleeding, infection, and pneumothorax. The patient understood the r isks and agreed to proceed. The skin was prepped and draped in sterile fashion. 1% lidocaine was used for local anesthesia. Under ultrasound guidance, a 5 Fr catheter with trochar was advanced into the left pleural effusion. Fluid was aspirated. The catheter was removed, and a dressing was applied. The re were no immediate complications. FINDINGS: Ultrasound images demonstrate a left pleural effusion and the catheter within the fluid. IMPRESSION: 1. Successful ultrasound-guided thoracentesis yielding 200 mL of yellow fluid. Reviewed, dictated and finalized at location A.
--- NOTE | ~2023-11-05 | XR_ITS ---
EXAMINATION: XR chest 1V portable DATE: 11/09/2023 14:41 INDICATION: Left pleural effusion. TECHNIQUE: A single frontal view of the chest was obtained. COMPARISON: Chest 2 views 11/07/2023 FINDINGS: Calcified right lung nodules are consistent with old granulomatous disease. There are airsp pernell opacities at left lung base. There is a small left pleural effusion. No pneumothorax. The heart s ize is normal. IMPRESSION: 1. Worsened airspace opacities at left lung base, consistent with atelectasis versus pneumonia. 2. Worsened small left pleural effusion. Reviewed, dictated and finalized at location A. IMPRESSION: 1. Worsened airspace opacities at left lung base, consistent with atelectasis v ersus pneumonia. 2. Worsened small left pleural effusion.
--- NOTE | ~2023-11-05 | XR_ITS ---
[id number] Ordering provider: Kwesi Paz MD History: 68 years Female with . post thoricentesis . Comparison: November 07, 2023 FINDINGS: MEDIASTINUM: The cardiac silhouette is not enlarged. LUNGS: No pneumothorax. Left basal pneumonia with pleural effusion is seen. OTHER: No free air under the diaphragm. IMPRESSION: Left basal pneumonia with left pleural effusion. No definite pneumothorax seen. Reviewed, dictated and finalized at location A.
--- NOTE | ~2023-11-05 | XR_ITS ---
EXAMINATION: XR chest 1V portable DATE: 11/12/2023 05:35 INDICATION: Left pleural effusion. TECHNIQUE: A single frontal view of the chest was obtained. COMPARISON: Chest single view 11/11/2023, chest CT 11/06/2023 FINDINGS: Calcified right lung nodules are consistent with old granulomatous disease. There is a smal l left pleural effusion. There are airspace opacities at left lung base. No pneumothorax. The heart s ize is normal. IMPRESSION: 1. Improved airspace opacities at left lung base, consistent with atelectasis versus pneumonia. 2. Improved small left pleural effusion. Reviewed, dictated and finalized at location E. IMPRESSION: 1. Improved airspace opacities at left lung base, consistent with atelectasis v ersus pneumonia. 2. Improved small left pleural effusion.
--- NOTE | ~2023-11-05 | XR_ITS ---
EXAMINATION: XR chest 2V DATE: 11/07/2023 13:54 INDICATION: Left pleural effusion. TECHNIQUE: Frontal and lateral views of the chest were obtained. COMPARISON: Chest 2 views 11/05/2023, chest CT 11/06/2023 FINDINGS: Calcified right lung nodules are consistent with old granulomatous disease. There is mild s carring at the lung apices. There are airspace opacities at left lung base. There is a small left ple ural effusion. No pneumothorax. The heart size is normal. IMPRESSION: 1. Worsened airspace opacities at left lung base, consistent with atelectasis versus pneumonia. 2. Stable small left pleural effusion. Reviewed, dictated and finalized at location E. IMPRESSION: 1. Worsened airspace opacities at left lung base, consistent with atelectasis v ersus pneumonia. 2. Stable small left pleural effusion.
--- NOTE | 2023-11-05 22:26 | ECG_ITS ---
Test Date: 2023-11-05 22:30:06 Measurements Intervals [place] Rate: 100 P: 42 ID: 124 QRS: 12 QRSD: 95 T: 119 QT: 306 QTc: 395 Interpretive Statements SINUS TACHYCARDIA WITH OCCASIONAL VENTRICULAR PREMATURE COMPLEXES POSSIBLE LEFT ATRIAL ENLARGEMENT [-0.1mV P-WAVE IN V1/V2] POSSIBLE LEFT VENTRICULAR HYPERTROPHY WITH SECONDARY REPOLARIZATION ABNORMALITY ABNORMAL ECG] No previous ECG available for comparison Electronically Signed On 11-06-2023 07:25:59 CDT by Kwesi Horn M.D.
[2023-11-05 22:34] VITALS: BP 160/96; PULSE 97; RESP 15; TEMP 37.2; O2SAT 100
[2023-11-05 22:45] LABS: Basophils Absolute Auto 0.1 K/mm3 (0.0-0.1); Basophils Percent Auto 0.4 % (0.2-1.2); Eosinophils Absolute Auto 0.2 K/mm3 (0-0.3); Eosinophils Percent Auto 1.5 % (0-4.4); Hematocrit 44.2 % (37.0-47.0); Hemoglobin 15.2 g/dL (12.0-15.0); Immature Granulocyte Absolute 0.05 K/mm3 (0.00-0.031); Immature Granulocyte Percent A 0.4 % (0-0.5); Lymphocytes Percent Auto 23.2 % (18.3-44.2); Mean Corpuscular HGB Conc 34.4 g/dl (32-36); Mean Corpuscular Hemoglobin 28.2 pg (26-34); Mean Platelet Volume 10.2 fl (7.4-10.4); Monocytes Absolute Auto 0.7 K/mm3 (0.1-0.6); Monocytes Percent Auto 6.4 % (2.6-8.5); Neutrophils Absolute Auto 7.6 K/mm3 (1.3-6.7); Neutrophils Percent Auto 68.1 % (45.5-73.1); Platelet Count Result 327 k/mm3 (150-375); Red Blood Count 5.39 M/mm3 (4.2-5.4); Red Cell Distribution Width 12.8 % (11.5-14.5); White Blood Count 11.2 K/mm3 (4.5-10.0)
[2023-11-05 22:55] LABS: Alanine Aminotransferase 11 U/L (6-35); Albumin Level 4.2 g/dL (3.5-5.1); Alkaline Phosphatase 102 U/L (38-126); Anion Gap 9 mmol/L (4-12); Aspartate Amino Transferase 18 U/L (14-36); Bilirubin,Total 0.5 mg/dL (0.2-1.3); Blood Urea Nitrogen 16 mg/dL (7-17); Carbon Dioxide 20 mmol/L (22-30); Chloride 107 mmol/L (98-107); Estimated CRCL calculation 60 ml/min; Estimated Glomerular Filt Rate > 60; Glucose 116 mg/dL (65-110); Lipase 63 U/L (23-300); Potassium 3.7 mmol/L (3.4-5.0); Sodium 136 mmol/L (137-145)
[2023-11-05 22:57] LABS: Prothrombin Time 13.6 Seconds (11.1-14.7)
[2023-11-05 23:07] LABS: Troponin I < 0.012 ng/mL (0.000-0.034)
[2023-11-06] VITALS (16 sets, daily range): BP systolic 131–179; BP diastolic 63–89; PULSE 79–93; RESP 12–24; TEMP 36.1–37; O2SAT 95–98; BMI 26.5
[2023-11-06 01:05] LABS: Appearance Urine Clear (Clear); Bacteria Urine None Seen /hpf; Bilirubin Urine Negative (Negative); Blood Urine 2+ (Negative); Color Urine Yellow (Yellow); Glucose Urine UA Negative (Negative); Ketones Urine Negative (Negative); Leukocyte Esterase Ur Trace LEU/UL (Negative); Nitrate Urine Negative (Negative); Non Pathogenic Casts 0-2; Protein Urine Negative (Negative); RBC Urine 0-2 /hpf (0-2); Squamous Epithelial Cell Urine None Seen /hpf (Few); Urobilinogen Urine 0.2 mg/dL (<2.0)
[2023-11-06 01:09] LABS: Add Urine Microscopic? YES
--- NOTE | 2023-11-06 01:44 | ECG_ITS ---
Test Date: 2023-11-06 01:52:29 Measurements Intervals [place] Rate: 79 P: 31 [place]: 152 QRS: 3 QRSD: 93 T: 97 QT: 357 QTc: 411 Interpretive Statements SINUS RHYTHM WITH OCCASIONAL VENTRICULAR PREMATURE COMPLEXES POSSIBLE LEFT ATRIAL ENLARGEMENT [-0.1mV P WAVE IN V1/V2] LEFT VENTRICULAR HYPERTROPHY WITH SECONDARY REPOLARIZATION ABNORMALITY ABNORMAL ECG Compared to ECG 11/05/2023 22:30:06 NO DIFFERENCE Electronically Signed On 11-06-2023 07:27:58 CDT by Kwesi Horn M.D.
[2023-11-06 02:13] LABS: Troponin I < 0.012 ng/mL (0.000-0.034)
[2023-11-06 02:25] LABS: NT Pro B Type Natriuretic Pept 64 pg/mL (19.9-100)
--- NOTE | 2023-11-06 04:21 | ED.GENADULT ---
HPI - General Adult General Chief complaint: Chest Pain Stated complaint: chest pain since thursday Time Seen by Provider: 11/06/23 01:42 History of Present Illness HPI narrative: patient is a 68-year-old female who presents emergency department with chief complaint of left-sided chest pain. The patient reports that pain started on Thursday reports he has felt short of breath and reports that it feels as though there is discomfort in the left lower part of her chest. Patient reports she has had some episodes of feeling lightheaded with this the patient reports no productive cough denies fever Related Data Home Medications Medication Instructions Recorded Confirmed aspirin 81 mg tablet,delayed 81 mg PO DAILY 03/03/22 03/19/22 release Allergies Allergy/AdvReac Type Severity Reaction Status Date / Time No Known Allergies Allergy Verified 11/06/23 01:49 Review of Systems Review of Systems: A 10 system review of systems was completed on the patient and is negative except for what is stated in the HPI. Nursing and ancillary documentation was reviewed. [facility] Past Medical History Medical History Abnormality of breast on screening mammography Anxiety Breast pain, right Hypertension Left renal atrophy Mixed hyperlipidemia Single seizure Surgical History Surgical History History of section History of hysterectomy Family History Family History Mother Breast cancer Depression Alcohol abuse by patient's mother Hypertension Father Diabetes mellitus Hypertension FH: kidney cancer Social History Social History Social History: Surrogate medical decision maker: Vitor Ivory, brother. Code status: Full code. Smoking packs per day: 0.5 Smoking cigarettes per day: 10.0 Years smoked: 20 Smoking pack-years: 10.00 Smoking status: Former smoker Tobacco type: cigarettes Alcohol intake: never Substance use type: marijuana and other Other substance usage details: edibles Lack of Transportation: No Lack of Food: Never True Current Housing: I Have Housing Concerned About Future Housing: No Difficulty Paying Gas/Electric Bills: No Difficulty Paying for Meds: No Currently Unemployed: No Education: High School Diploma/GED Difficulty w/ Childcare or Family Care: No Additional living arrangements comments: Lives in [place]. Additional occupation/education comments: Retired. Spiritual care concerns: No Exam Narrative: GENERAL: Well-appearing, well-nourished, and in no acute distress. HEAD: Normocephalic, atraumatic. EYES: PERRLA and EOMI. ENT: Nares clear, no rhinorrhea or epistaxis. Mucous membranes moist. NECK: Supple. CHEST: Clear to auscultation. No respiratory distress. HEART: Regular rate and rhythm. No murmur heard. Normal peripheral pulses. ABDOMEN: Soft, nontender, nondistended, normal active bowel sounds. EXTREMITIES: Normal range of motion. No edema. SKIN: Warm, dry, no rash. NEURO: No focal deficits. Alert and oriented x3. PSYCH: Normal mood and affect. Course Vital Signs Vital signs: Vital Signs Temperature 37.2 C 11/05/23 22:34 Pulse Rate 97 11/05/23 22:34 Respiratory Rate 15 11/05/23 22:34 Blood Pressure 160/96 H 11/05/23 22:34 Pulse Oximetry 100 11/05/23 22:34 Oxygen Delivery Room Air 11/05/23 22:34 Temperature 37.2 C 11/05/23 22:34 Pulse Rate 93 11/06/23 06:12 Respiratory Rate 21 H 11/06/23 06:12 Blood Pressure 171/89 H 11/06/23 06:12 Pulse Oximetry 96 11/06/23 06:12 Oxygen Delivery Room Air 11/06/23 01:47 Medical Decision Making MDM Narrative Medical decision making narrative: differential diagnosis includes ACS, p
--- NOTE | 2023-11-06 04:31 | ECG_ITS ---
Test Date: 2023-11-06 04:35:47 Measurements Intervals Rogers Rate: 72 P: 37 TN: 162 QRS: 12 QRSD: 90 T: 87 QT: 369 QTc: 406 Interpretive Statements SINUS RHYTHM POSSIBLE LEFT ATRIAL ENLARGEMENT [-0.1mV P WAVE IN V1/V2] LEFT VENTRICULAR HYPERTROPHY WITH SECONDARY REPOLARIZATION ABNORMALITY/ ABNORMAL ECG COMPARED TO A EARLIER TODAY NO SIGNIFICANT DIFFERENCE Electronically Signed On 11-06-2023 07:30:06 CDT by Kwesi Horn M.D.
[2023-11-06 05:05] LABS: Troponin I < 0.012 ng/mL (0.000-0.034)
--- NOTE | 2023-11-06 05:28 | PC.NURSE ---
Pt noted to have intermittent runs of bigeminy. Pt A&Ox4, denies new pain or symptoms other than stated complaint. EDP notified.
--- NOTE | 2023-11-06 08:45 | PC.NURSE ---
0845-REPORT TO CHARLENE DE OLIVEIRA.
--- NOTE | 2023-11-06 09:23 | ADMGEN ---
This patient, Mandy Ivory, was admitted to IMU Room 204-01. Patient/family oriented to hospital policies and general routines including ID bracelet, bed and alarms, visiting hours, pain management, procedures, bathroom and other care routines, personal items, smoking policy, room service/diet, and visiting hours. Information on how to activate the Rapid Response Team has been discussed. Patient/Family are encouraged to report perceived risks to care and to ask questions if they do not understand what they are told or what they should do.
--- NOTE | 2023-11-06 11:30 | PM.IMHP ---
H&P: HPI History of Present Illness Date/Time: 11/06/23 11:30 Chief Complaint: chest pain left-sided Narrative: patient is a 68-year-old female who presents emergency department with chief complaint of left-sided chest pain. The patient reports that pain started on Thursday reports he has felt short of breath and reports that it feels as though there is discomfort in the left lower part of her chest. This has been ongoing since past thursday. Patient reports she has had some episodes of feeling lightheaded with this the patient reports no productive cough denies fever. See Have been feeling dizzy and nauseated since Thursday. No diarrhea or abdominal pain. No fever chills. Her chest pain has now resolved. Review of Systems Review of Systems: - CONSTITUTIONAL: Denies weight loss, fever and chills. - HEENT: Denies changes in vision and hearing - RESPIRATORY: Denies SOB and cough. - CV: Denies palpitations and reports CP. - GI: Denies abdominal pain, and reports nausea, denies vomiting and diarrhea. - : Denies dysuria and urinary frequency. - MSK: Denies myalgia and joint pain. - SKIN: Denies rash and pruritus. - NEUROLOGICAL: Denies headache and syncope. - PSYCHIATRIC: Denies recent changes in mood. Denies anxiety and depression. [facility] Past Medical History Medical History Abnormality of breast on screening mammography Anxiety Breast pain, right Hypertension Left renal atrophy Mixed hyperlipidemia Single seizure Surgical History Surgical History History of section History of hysterectomy Family History Family History Mother Breast cancer Depression Alcohol abuse by patient's mother Hypertension Father Diabetes mellitus Hypertension FH: kidney cancer Social History Social History Social History: Surrogate medical decision maker: Vitor Ivory, brother. Code status: Full code. Smoking packs per day: 2 Smoking cigarettes per day: 40.0 Years smoked: 25 Smoking pack-years: 50.00 Smoking status: Former smoker Tobacco type: cigarettes Alcohol intake: never Substance use: current Substance use type: marijuana Other substance usage details: edibles Last use: 11/03/23 Do You Feel Safe in your Home?: Yes Lack of Transportation: No Lack of Food: Never True Current Housing: I Have Housing Concerned About Future Housing: No Difficulty Paying Gas/Electric Bills: No Difficulty Paying for Meds: No Currently Unemployed: No Education: High School Diploma/GED Difficulty w/ Childcare or Family Care: No Additional living arrangements comments: Lives in [place]. Additional occupation/education comments: Retired. Spiritual care concerns: No Meds Home Medications and Allergies Home Medications Medication Instructions Recorded Confirmed Type aspirin 81 mg tablet,delayed 81 mg PO DAILY 03/03/22 11/06/23 History release losartan 25 mg tablet 25 mg PO DAILY 30 days #30 tabs 03/11/23 11/06/23 Rx amlodipine 5 mg tablet 5 mg PO DAILY #30 tabs 07/19/23 11/06/23 Rx atorvastatin 20 mg tablet 20 mg PO DAILY #30 tabs 07/19/23 11/06/23 Rx calcium carbonate 600 mg-vitamin 1 cap PO DAILY 11/06/23 11/06/23 History D3 10 mcg (400 unit) capsule trazodone 50 mg tablet 50 mg PO HS PRN Insomnia 11/06/23 11/06/23 History Allergies Allergy/AdvReac Type Severity Reaction Status Date / Time No Known Allergies Allergy Verified 11/06/23 09:24 Vital Signs Vital Signs - 24 hr 11/05/23 22:34 11/06/23 00:24 11/06/23 01:47 Temperature 98.9 F Pulse Rate 97 92 Respiratory Rate 15 18 Blood Pressure 160/96 H 168/79 H Pulse Oximetry 100 98 Oxygen Delivery Room Air Room Air 11/06/23
[2023-11-06] MEDS: amLODIPine BESYLATE 5 MG TABLET PO (11:44)
[2023-11-06] MEDS: LOSARTAN POTASSIUM 25 MG TABLET PO (11:44)
[2023-11-06] MEDS: PANTOPRAZOLE 40 MG TABLET PO (12:41)
[2023-11-06] MEDS: FUROSEMIDE INJ 40 MG/4 ML VIAL 20 MG IV PUSH (14:37)
[2023-11-06] MEDS: AZITHROMYCIN 500 MG/NS 250 ML 500 MG/250 ML BAG 250 MG IVPB (15:11)
[2023-11-06] MEDS: ACETAMINOPHEN 325 MG TABLET PO (19:42)
--- NOTE | 2023-11-06 20:16 | PC.NURSE ---
This patient, Mandy Ivory, was transferred to [[id number] ] on 11/06/23 at 1999. Personal belongings sent with patient. Report given to [Melvin Durbin ]. Appropriate documentation sent with patient.
[2023-11-06] MEDS: traZODone HCL 50 MG TABLET PO (21:08)
[2023-11-07] VITALS (9 sets, daily range): BP systolic 135–147; BP diastolic 60–68; PULSE 67–93; RESP 16–18; TEMP 36.2–36.9; O2SAT 96–97
[2023-11-07] MEDS: ACETAMINOPHEN 325 MG TABLET PO (04:38)
[2023-11-07] MEDS: ATORVASTATIN 20 MG TABLET PO (08:26)
[2023-11-07] MEDS: LOSARTAN POTASSIUM 25 MG TABLET PO (08:26)
[2023-11-07] MEDS: amLODIPine BESYLATE 5 MG TABLET PO (08:26)
[2023-11-07] MEDS: CALCIUM/VITAMIN D 500 MG/5 MCG (200 I.U.) TABLET PO (08:26)
[2023-11-07] MEDS: ASPIRIN 81 MG ENTERIC TABLET PO (08:26)
[2023-11-07] MEDS: PANTOPRAZOLE 40 MG TABLET PO (08:27)
[2023-11-07] MEDS: ENOXAPARIN 40 MG/0.4 ML SYRINGE SUB-Q (08:31)
[2023-11-07 09:50] LABS: Basophils Absolute Auto 0.1 K/mm3 (0.0-0.1); Basophils Percent Auto 0.7 % (0.2-1.2); Eosinophils Absolute Auto 0.1 K/mm3 (0-0.3); Eosinophils Percent Auto 1.1 % (0-4.4); Hematocrit 45.2 % (37.0-47.0); Hemoglobin 14.7 g/dL (12.0-15.0); Immature Granulocyte Absolute 0.02 K/mm3 (0.00-0.031); Immature Granulocyte Percent A 0.2 % (0-0.5); Lymphocytes Absolute Auto 1.87 K/mm3 (0.9-3.2); Lymphocytes Percent Auto 20.8 % (18.3-44.2); Mean Corpuscular HGB Conc 32.5 g/dl (32-36); Mean Corpuscular Hemoglobin 27.9 pg (26-34); Mean Corpuscular Volume 85.9 fl (80-100); Mean Platelet Volume 10.4 fl (7.4-10.4); Monocytes Absolute Auto 0.6 K/mm3 (0.1-0.6); Monocytes Percent Auto 6.3 % (2.6-8.5); Neutrophils Absolute Auto 6.4 K/mm3 (1.3-6.7); Neutrophils Percent Auto 70.9 % (45.5-73.1); Platelet Count Result 290 k/mm3 (150-375); Red Blood Count 5.26 M/mm3 (4.2-5.4); Red Cell Distribution Width 12.8 % (11.5-14.5)
[2023-11-07 09:51] LABS: Alanine Aminotransferase 10 U/L (6-35); Alkaline Phosphatase 86 U/L (38-126); Anion Gap 8 mmol/L (4-12); Aspartate Amino Transferase 19 U/L (14-36); Bilirubin,Total 0.8 mg/dL (0.2-1.3); Blood Urea Nitrogen 13 mg/dL (7-17); Carbon Dioxide 28 mmol/L (22-30); Chloride 103 mmol/L (98-107); Estimated CRCL calculation 60 ml/min; Estimated Glomerular Filt Rate > 60; Glucose 129 mg/dL (65-110); Magnesium 2.1 mg/dL (1.6-2.3); Potassium 3.6 mmol/L (3.4-5.0); Sodium 139 mmol/L (137-145)
--- NOTE | 2023-11-07 13:36 | PM.IMPN ---
Progress Note: A&P Assessment and Plan (1) Chest pain: Code(s): R07.9 - Chest pain, unspecified Status: Acute (2) Hypertension: Code(s): I10 - Essential (primary) hypertension Status: Acute (3) Mixed hyperlipidemia: Code(s): E78.2 - Mixed hyperlipidemia Status: Acute (4) Anxiety: Code(s): F41.9 - Anxiety disorder, unspecified Status: Acute Plan This is a 68-year-old female presents to the ED with complaint of left-sided chest pain. Patient reported that pain started since 2 stay associated shortness of breath. Fell some lightheadedness. No productive cough or fever. On ED evaluation vitals were stable except for hypertension. Laboratory studies reviewed mild leukocytosis at 11.2 normal chemistry urinalysis showed no evidence of UTI. EKG with nonspecific ST-T changes. Chest x-ray with subsegmental left basilar atelectasis or consolidation. CTA showed no evidence of PE but showed some small pleural effusion atelectasis on the left side. Troponin evaluation with serial troponin remain negative. Lipase was 63 which is within normal limit. Echo 2021 with EF 60-65% mildly increased left ventricular wall thickness grade 1 diastolic dysfunction. No pulmonary hypertension. Left basilar atelectasis with some small pleural effusion noted. Incentive spirometry. Add PPI. Echo pending BNP is normal. DVT prophylaxis Lovenox empirically treated for underlying infection with ceftriaxone and azithromycin. Will give ibuprofen for anti-inflammatory effect her chest pain is pleuritic in origin. Recheck chest x-ray two view to evaluate left-sided pleural effusion Hypertension resume home medication amlodipine 5 mg and losartan 25 mg Hyperlipidemia atorvastatin Insomnia on trazodone p.r.n.. Subjective Date/time seen: 11/07/23 13:36 Interval history: No overnight events. S side chest pain is a little better. Hurts when she takes deep breath. No cough. Review of Systems Review of Systems: All systems reviewed & are unremarkable except as noted in HPI and below Exam Narrative: GENERAL: Well-appearing, well-nourished, and in no acute distress. HEAD: Normocephalic, atraumatic. EYES: PERRLA and EOMI. ENT: Nares clear, no rhinorrhea or epistaxis. Mucous membranes moist. NECK: Supple. CHEST: Clear to auscultation. No respiratory distress. HEART: Regular rate and rhythm. No murmur heard. Normal peripheral pulses. ABDOMEN: Soft, nontender, nondistended, normal active bowel sounds. EXTREMITIES: Normal range of motion. No edema. SKIN: Warm, dry, no rash. NEURO: No focal deficits. Alert and oriented x3. PSYCH: Normal mood and affect. Objective Data Vital Signs Vital Signs: Vital Signs - 24 hr 11/06/23 14:00 11/06/23 14:24 11/06/23 16:00 Temperature Pulse Rate 89 Respiratory Rate Blood Pressure 146/72 H Pulse Oximetry Oxygen Delivery Room Air 11/06/23 16:00 11/06/23 16:24 11/06/23 20:00 Temperature 96.9 F L Pulse Rate 86 84 81 Respiratory Rate 16 Blood Pressure 140/63 Pulse Oximetry 95 Oxygen Delivery 11/06/23 20:15 11/07/23 00:00 11/07/23 04:00 Temperature 97.3 F L Pulse Rate 87 86 78 Respiratory Rate 18 Blood Pressure 150/67 H Pulse Oximetry 97 Oxygen Delivery 11/07/23 06:00 11/07/23 08:00 11/07/23 08:00 Temperature 97.7 F Pulse Rate 88 67 Respiratory Rate 18 Blood Pressure 135/66 Pulse Oximetry 96 Oxygen Delivery Room Air Intake/Output Intake/Output: Intake & Output 11/04/23 11/05/23 11/06/23 11/07/23 23:59 23:59 23:59 23:59 Intake Total 1330 680 Output Total 800 Balance 530 680 Meds/Results Medications: Active Medications Generic Name Dose Route Start Last Admin Trade Name Freq PRN Reason Stop Dose Admin Acetaminophen 325 mg 11/06/23 11:51 11/07/23 04:38 Acetaminophen 325 Mg Tablet PO 325 mg Q6H PRN Administration Mild Pain (1-3) or Fever
[2023-11-07] MEDS: IBUPROFEN 400 MG TABLET 800 MG PO (16:12)
[2023-11-07] MEDS: AZITHROMYCIN 500 MG/NS 250 ML 500 MG/250 ML BAG 125 MG IVPB (16:40)
[2023-11-07] MEDS: traZODone HCL 50 MG TABLET PO (20:19)
[2023-11-08] VITALS (9 sets, daily range): BP systolic 113–152; BP diastolic 50–66; PULSE 67–82; RESP 16–18; TEMP 36.2–36.8; O2SAT 95–98
[2023-11-08] MEDS: ACETAMINOPHEN 325 MG TABLET PO ×2 (04:49→17:11)
[2023-11-08 05:17] LABS: Basophils Absolute Auto 0.1 K/mm3 (0.0-0.1); Basophils Percent Auto 0.7 % (0.2-1.2); Eosinophils Absolute Auto 0.2 K/mm3 (0-0.3); Eosinophils Percent Auto 2.5 % (0-4.4); Hematocrit 43.1 % (37.0-47.0); Hemoglobin 14.2 g/dL (12.0-15.0); Immature Granulocyte Absolute 0.02 K/mm3 (0.00-0.031); Immature Granulocyte Percent A 0.3 % (0-0.5); Lymphocytes Absolute Auto 2.13 K/mm3 (0.9-3.2); Lymphocytes Percent Auto 28.2 % (18.3-44.2); Mean Corpuscular HGB Conc 32.9 g/dl (32-36); Mean Corpuscular Hemoglobin 27.9 pg (26-34); Mean Corpuscular Volume 84.7 fl (80-100); Mean Platelet Volume 10.1 fl (7.4-10.4); Monocytes Absolute Auto 0.5 K/mm3 (0.1-0.6); Monocytes Percent Auto 7.1 % (2.6-8.5); Neutrophils Absolute Auto 4.6 K/mm3 (1.3-6.7); Neutrophils Percent Auto 61.2 % (45.5-73.1); Platelet Count Result 280 k/mm3 (150-375); Red Blood Count 5.09 M/mm3 (4.2-5.4); Red Cell Distribution Width 12.5 % (11.5-14.5); White Blood Count 7.6 K/mm3 (4.5-10.0)
[2023-11-08 05:26] LABS: Alanine Aminotransferase 9 U/L (6-35); Albumin Level 3.7 g/dL (3.5-5.1); Alkaline Phosphatase 77 U/L (38-126); Anion Gap 4 mmol/L (4-12); Aspartate Amino Transferase 18 U/L (14-36); Bilirubin,Total 0.8 mg/dL (0.2-1.3); Blood Urea Nitrogen 15 mg/dL (7-17); Calcium 8.7 mg/dL (8.4-10.2); Carbon Dioxide 29 mmol/L (22-30); Chloride 105 mmol/L (98-107); Estimated CRCL calculation 68 ml/min; Estimated Glomerular Filt Rate > 60; Glucose 90 mg/dL (65-110); Magnesium 2.1 mg/dL (1.6-2.3); Potassium 3.7 mmol/L (3.4-5.0); Sodium 138 mmol/L (137-145)
[2023-11-08] MEDS: IBUPROFEN 400 MG TABLET 800 MG PO (05:41)
[2023-11-08] MEDS: ASPIRIN 81 MG ENTERIC TABLET PO (09:23)
[2023-11-08] MEDS: ATORVASTATIN 20 MG TABLET PO (09:23)
[2023-11-08] MEDS: ENOXAPARIN 40 MG/0.4 ML SYRINGE SUB-Q (09:23)
[2023-11-08] MEDS: CALCIUM/VITAMIN D 500 MG/5 MCG (200 I.U.) TABLET PO (09:23)
[2023-11-08] MEDS: LOSARTAN POTASSIUM 25 MG TABLET PO (09:23)
[2023-11-08] MEDS: amLODIPine BESYLATE 5 MG TABLET PO (09:23)
[2023-11-08] MEDS: PANTOPRAZOLE 40 MG TABLET PO (09:23)
--- NOTE | 2023-11-08 09:35 | PC.NURSE ---
pt taken down to MRI
--- NOTE | 2023-11-08 12:34 | PM.IMPN ---
Progress Note: A&P Assessment and Plan (1) Chest pain: Code(s): R07.9 - Chest pain, unspecified Status: Acute (2) Hypertension: Code(s): I10 - Essential (primary) hypertension Status: Acute (3) Mixed hyperlipidemia: Code(s): E78.2 - Mixed hyperlipidemia Status: Acute (4) Anxiety: Code(s): F41.9 - Anxiety disorder, unspecified Status: Acute Plan This is a 68-year-old female presents to the ED with complaint of left-sided chest pain. Patient reported that pain started since 2 stay associated shortness of breath. Fell some lightheadedness. No productive cough or fever. On ED evaluation vitals were stable except for hypertension. Laboratory studies reviewed mild leukocytosis at 11.2 normal chemistry urinalysis showed no evidence of UTI. EKG with nonspecific ST-T changes. Chest x-ray with subsegmental left basilar atelectasis or consolidation. CTA showed no evidence of PE but showed some small pleural effusion atelectasis on the left side. Troponin evaluation with serial troponin remain negative. Lipase was 63 which is within normal limit. Echo 2021 with EF 60-65% mildly increased left ventricular wall thickness grade 1 diastolic dysfunction. No pulmonary hypertension. Left basilar atelectasis with some small pleural effusion noted. Incentive spirometry. Add PPI. Echo pending. BNP is normal. DVT prophylaxis Lovenox empirically treated for underlying infection with ceftriaxone and azithromycin. Added ibuprofen for anti-inflammatory effect her chest pain is pleuritic in origin. Recheck chest x-ray two view to evaluate left-sided pleural effusion revealed mild worsening of the left-sided pleural effusion. Expectant management reviewed with the patient and patient agreeable. Continue IV antibiotics Hypertension resume home medication amlodipine 5 mg and losartan 25 mg Hyperlipidemia atorvastatin Insomnia on trazodone p.r.n.. Subjective Date/time seen: 11/08/23 12:34 Interval history: No overnight events. Still has left-sided pleuritic chest pain. Chest x-ray reviewed with the patient. Review of Systems Review of Systems: All systems reviewed & are unremarkable except as noted in HPI and below Exam Narrative: GENERAL: Well-appearing, well-nourished, and in no acute distress. HEAD: Normocephalic, atraumatic. EYES: PERRLA and EOMI. ENT: Nares clear, no rhinorrhea or epistaxis. Mucous membranes moist. NECK: Supple. CHEST: Clear to auscultation. No respiratory distress. HEART: Regular rate and rhythm. No murmur heard. Normal peripheral pulses. ABDOMEN: Soft, nontender, nondistended, normal active bowel sounds. EXTREMITIES: Normal range of motion. No edema. SKIN: Warm, dry, no rash. NEURO: No focal deficits. Alert and oriented x3. PSYCH: Normal mood and affect. Objective Data Vital Signs Vital Signs: Vital Signs - 24 hr 11/07/23 14:00 11/07/23 16:00 11/07/23 20:00 Temperature 98.4 F Pulse Rate 78 71 93 Respiratory Rate 16 Blood Pressure 147/68 H Pulse Oximetry 97 Oxygen Delivery 11/07/23 22:00 11/08/23 00:00 11/08/23 04:00 Temperature 97.1 F L Pulse Rate 73 82 71 Respiratory Rate 16 Blood Pressure 147/60 H Pulse Oximetry 96 Oxygen Delivery 11/08/23 05:29 11/08/23 09:17 11/08/23 08:00 Temperature 97.1 F L Pulse Rate 70 78 70 Respiratory Rate 18 16 Blood Pressure 152/66 H 113/50 L Pulse Oximetry 97 95 Oxygen Delivery 11/08/23 09:30 Temperature Pulse Rate Respiratory Rate Blood Pressure Pulse Oximetry Oxygen Delivery Room Air Intake/Output Intake/Output: Intake & Output 11/05/23 11/06/23 11/07/23 11/08/23 23:59 23:59 23:59 23:59 Intake Total 1330 1220 490 Output Total 800 Balance 530 1220 490 Meds/Results Medications: Active Medications Generic Name Dose Route Start Last Admin Trade Name Freq PRN Reason Stop Dose Admin Acetaminophen 325 mg 11/06/23 11:51 0
[2023-11-08] MEDS: polyethylene glycoL 3350 17 GM POWD.PACK PO (14:12)
[2023-11-08] MEDS: AZITHROMYCIN 500 MG/NS 250 ML 500 MG/250 ML BAG 125 MG IVPB (17:11)
[2023-11-08] MEDS: traZODone HCL 50 MG TABLET PO (21:00)
[2023-11-08] MEDS: ACETAMINOPHEN 325 MG TABLET 650 MG PO (22:52)
--- NOTE | 2023-11-09 | ECHO_ITS ---
Patient Info Name: Mandy Ivory Age: 68 years : 1955 Gender: Female Ht: 69 in Wt: 176 lbs BSA: 1.98 m2 HR: 67 bpm BP: 152 / 65 mmHg Heart Rhythm: Sinus Rhythm Technical Quality: Fair Exam Date: 11/09/2023 9:56 AM Exam Location: Echo Lab Patient Status: Inpatient Admit Date: 11/08/2023 Staff Ordering Physician: Nj Barahona MD Occupational Health Coordinator: Karen Stewart RDCS Attending Provider: Dale Fox MD Exam Type: CA echo doppler color flow Study Info Indications R07.9 - Chest pain, unspecified Complete two-dimensional, color flow and Doppler transthoracic echocardiogram is performed. Summary 1. Complete two-dimensional, color flow and Doppler transthoracic echocardiogram is performed. 2. Left ventricular chamber dimension is normal. 3. Left ventricular systolic function is normal, estimated at 60-65%. 4. The left ventricular diastolic function is grade I diastolic dysfunction. 5. E/e' 14 is mildly elevated. 6. Left atrial chamber dimension is mildly enlarged. 7. There is trace mitral valve regurgitation. 8. There is trace tricuspid valve regurgitation. 9. No pulmonary hypertension, estimated pulmonary arterial systolic pressure is 27 mmHg. Left Ventricle E/e' 14 is mildly elevated. Left ventricular chamber dimension is normal. Left ventricular systolic function is normal, estimated at 60-65%. The left ventricular diastolic function is grade I diastolic dysfunction. Right Ventricle Right ventricular systolic function is normal and with normal TAPSE 2.6 cm. Right ventricular chamber dimension is normal. Left Atria Left atrial chamber dimension is mildly enlarged. Right Atria Right atrial chamber dimension is normal. Aortic Valve The aortic valve is trileaflet. There is no aortic valve stenosis. Pulmonic Valve There is no pulmonic regurgitation. Mitral Valve There is no mitral valve stenosis. There is trace mitral valve regurgitation. Tricuspid Valve There is trace tricuspid valve regurgitation. No pulmonary hypertension, estimated pulmonary arterial systolic pressure is 27 mmHg. Pericardium/Pleural There is no pericardial effusion. Inferior Vena Cava Normal inferior vena cava with >50% collapse upon inspiration consistent with normal right atrial pressure, 5 mmHg. Aorta The aortic root size at the sinus of Valsalva is normal. Left Ventricular Outflow Tract Name Value Normal LVOT 2D LVOT Diameter 2.0 cm LVOT Doppler LVOT Peak Gradient 2 mmHg LVOT Mean Gradient 1 mmHg LVOT VTI 15 cm LVOT VTI/AV VTI Ratio 0.6 LVOT Stroke Volume 50 ml LVOT CO 3.7 l/min LVOT CI 1.8 l/min/m2 Pulmonic Valve Name Value Normal RVOT Doppler RVOT Peak Gradient 2 mmHg PV Doppler ---------
[2023-11-09] MEDS: HYDROcodone/acetaminophen (*CRX) 5-325 MG TABLET 1 TAB PO ×3 (03:52→22:07)
[2023-11-09 05:18] VITALS: BP 152/65; PULSE 67; RESP 17; TEMP 36.7; O2SAT 96
[2023-11-09 06:31] LABS: Basophils Absolute Auto 0.1 K/mm3 (0.0-0.1); Basophils Percent Auto 0.7 % (0.2-1.2); Eosinophils Absolute Auto 0.3 K/mm3 (0-0.3); Eosinophils Percent Auto 3.9 % (0-4.4); Hematocrit 38.2 % (37.0-47.0); Hemoglobin 12.7 g/dL (12.0-15.0); Immature Granulocyte Absolute 0.02 K/mm3 (0.00-0.031); Immature Granulocyte Percent A 0.3 % (0-0.5); Lymphocytes Absolute Auto 1.83 K/mm3 (0.9-3.2); Lymphocytes Percent Auto 24.5 % (18.3-44.2); Mean Corpuscular HGB Conc 33.2 g/dl (32-36); Mean Corpuscular Volume 84.1 fl (80-100); Mean Platelet Volume 10.1 fl (7.4-10.4); Monocytes Absolute Auto 0.6 K/mm3 (0.1-0.6); Monocytes Percent Auto 7.4 % (2.6-8.5); Neutrophils Absolute Auto 4.7 K/mm3 (1.3-6.7); Neutrophils Percent Auto 63.2 % (45.5-73.1); Platelet Count Result 260 k/mm3 (150-375); Red Blood Count 4.54 M/mm3 (4.2-5.4); Red Cell Distribution Width 12.2 % (11.5-14.5); White Blood Count 7.5 K/mm3 (4.5-10.0)
[2023-11-09 06:48] LABS: Alanine Aminotransferase 8 U/L (6-35); Albumin Level 3.3 g/dL (3.5-5.1); Alkaline Phosphatase 72 U/L (38-126); Anion Gap 6 mmol/L (4-12); Aspartate Amino Transferase 16 U/L (14-36); Bilirubin,Total 0.6 mg/dL (0.2-1.3); Blood Urea Nitrogen 14 mg/dL (7-17); Calcium 8.6 mg/dL (8.4-10.2); Carbon Dioxide 26 mmol/L (22-30); Chloride 105 mmol/L (98-107); Estimated CRCL calculation 68 ml/min; Estimated Glomerular Filt Rate > 60; Glucose 96 mg/dL (65-110); Magnesium 2.1 mg/dL (1.6-2.3); Potassium 4.1 mmol/L (3.4-5.0); Sodium 137 mmol/L (137-145)
[2023-11-09] MEDS: ASPIRIN 81 MG ENTERIC TABLET PO (10:18)
[2023-11-09] MEDS: ATORVASTATIN 20 MG TABLET PO (10:18)
[2023-11-09] MEDS: ENOXAPARIN 40 MG/0.4 ML SYRINGE SUB-Q (10:18)
[2023-11-09] MEDS: CALCIUM/VITAMIN D 500 MG/5 MCG (200 I.U.) TABLET PO (10:18)
[2023-11-09] MEDS: amLODIPine BESYLATE 5 MG TABLET PO (10:18)
[2023-11-09] MEDS: LOSARTAN POTASSIUM 25 MG TABLET PO (10:19)
[2023-11-09] MEDS: PANTOPRAZOLE 40 MG TABLET PO (10:19)
[2023-11-09] MEDS: polyethylene glycoL 3350 17 GM POWD.PACK PO (10:19)
[2023-11-09 11:22] VITALS: O2SAT 93
[2023-11-09 14:00] VITALS: BP 144/67; PULSE 67; RESP 16; TEMP 37.1; O2SAT 94
--- NOTE | 2023-11-09 15:20 | PM.IMPN ---
Progress Note: A&P Assessment and Plan (1) Chest pain: Code(s): R07.9 - Chest pain, unspecified Status: Acute (2) Hypertension: Code(s): I10 - Essential (primary) hypertension Status: Acute (3) Mixed hyperlipidemia: Code(s): E78.2 - Mixed hyperlipidemia Status: Acute (4) Anxiety: Code(s): F41.9 - Anxiety disorder, unspecified Status: Acute Plan This is a 68-year-old female presents to the ED with complaint of left-sided chest pain. Patient reported that pain started since 2 stay associated shortness of breath. Fell some lightheadedness. No productive cough or fever. On ED evaluation vitals were stable except for hypertension. Laboratory studies reviewed mild leukocytosis at 11.2 normal chemistry urinalysis showed no evidence of UTI. EKG with nonspecific ST-T changes. Chest x-ray with subsegmental left basilar atelectasis or consolidation. CTA showed no evidence of PE but showed some small pleural effusion atelectasis on the left side. Troponin evaluation with serial troponin remain negative. Lipase was 63 which is within normal limit. Echo 2021 with EF 60-65% mildly increased left ventricular wall thickness grade 1 diastolic dysfunction. No pulmonary hypertension. Left basilar atelectasis with some small pleural effusion noted. Incentive spirometry. Add PPI. Echo pending. BNP is normal. DVT prophylaxis Lovenox empirically treated for underlying infection with ceftriaxone and azithromycin. Added ibuprofen for anti-inflammatory effect her chest pain is pleuritic in origin. Recheck chest x-ray two view to evaluate left-sided pleural effusion revealed mild worsening of the left-sided pleural effusion. Expectant management reviewed with the patient and patient agreeable. Continue IV antibiotics. if persistent pain , will need to do thoracentesis of the left pleural effusion. await net 24 hrs for further evaluation Hypertension resume home medication amlodipine 5 mg and losartan 25 mg Hyperlipidemia atorvastatin Insomnia on trazodone p.r.n.. Subjective Date/time seen: 11/09/23 15:20 Interval history: patient contineud to have some pain earliert mercy during echo but better now. she is able to take deeper breath. cxr reveiwed. Review of Systems Review of Systems: All systems reviewed & are unremarkable except as noted in HPI and below Exam Narrative: GENERAL: Well-appearing, well-nourished, and in no acute distress. HEAD: Normocephalic, atraumatic. EYES: PERRLA and EOMI. ENT: Nares clear, no rhinorrhea or epistaxis. Mucous membranes moist. NECK: Supple. CHEST: Clear to auscultation. No respiratory distress. HEART: Regular rate and rhythm. No murmur heard. Normal peripheral pulses. ABDOMEN: Soft, nontender, nondistended, normal active bowel sounds. EXTREMITIES: Normal range of motion. No edema. SKIN: Warm, dry, no rash. NEURO: No focal deficits. Alert and oriented x3. PSYCH: Normal mood and affect. Objective Data Vital Signs Vital Signs: Vital Signs - 24 hr 11/08/23 16:00 11/08/23 20:52 11/08/23 20:00 Temperature 98.0 F Pulse Rate 73 72 Respiratory Rate 17 Blood Pressure 140/56 L Pulse Oximetry 96 Oxygen Delivery Room Air 11/09/23 05:18 11/09/23 11:22 11/09/23 10:20 Temperature 98.0 F Pulse Rate 67 Respiratory Rate 17 Blood Pressure 152/65 H Pulse Oximetry 96 93 Oxygen Delivery Room Air Room Air 11/09/23 14:00 Temperature 98.8 F Pulse Rate 67 Respiratory Rate 16 Blood Pressure 144/67 H Pulse Oximetry 94 Oxygen Delivery Intake/Output Intake/Output: Intake & Output 11/06/23 11/07/23 11/08/23 11/09/23 23:59 23:59 23:59 23:59 Intake Total 1330 1220 1198.3 650 Output Total 800 Balance 530 1220 1198.3 650 Meds/Results Medications: Active Medications Generic Name Dose Route Start Last Admin Trade Name Freq PRN Reason Stop Dose Admin Acetaminophen 650 mg 11/08/23 22:10 11/08/23 2
[2023-11-09] MEDS: AZITHROMYCIN 500 MG/NS 250 ML 500 MG/250 ML BAG 250 MG IVPB (16:59)
[2023-11-09 20:22] VITALS: BP 146/64; PULSE 70; RESP 20; TEMP 36.6; O2SAT 94
[2023-11-09] MEDS: traZODone HCL 50 MG TABLET PO (23:13)
[2023-11-10 05:18] VITALS: BP 188/65; PULSE 67; RESP 20; TEMP 36.6; O2SAT 94
[2023-11-10] MEDS: HYDROcodone/acetaminophen (*CRX) 5-325 MG TABLET 1 TAB PO ×2 (05:20→23:58)
[2023-11-10 05:45] LABS: Basophils Absolute Auto 0.1 K/mm3 (0.0-0.1); Basophils Percent Auto 0.7 % (0.2-1.2); Eosinophils Absolute Auto 0.3 K/mm3 (0-0.3); Eosinophils Percent Auto 4.4 % (0-4.4); Hematocrit 37.3 % (37.0-47.0); Hemoglobin 12.6 g/dL (12.0-15.0); Immature Granulocyte Absolute 0.02 K/mm3 (0.00-0.031); Immature Granulocyte Percent A 0.3 % (0-0.5); Lymphocytes Absolute Auto 1.98 K/mm3 (0.9-3.2); Mean Corpuscular HGB Conc 33.8 g/dl (32-36); Mean Corpuscular Hemoglobin 28.4 pg (26-34); Mean Platelet Volume 10.2 fl (7.4-10.4); Monocytes Absolute Auto 0.5 K/mm3 (0.1-0.6); Monocytes Percent Auto 7.5 % (2.6-8.5); Neutrophils Absolute Auto 4.2 K/mm3 (1.3-6.7); Neutrophils Percent Auto 59.1 % (45.5-73.1); Platelet Count Result 276 k/mm3 (150-375); Red Blood Count 4.44 M/mm3 (4.2-5.4); Red Cell Distribution Width 12.1 % (11.5-14.5); White Blood Count 7.1 K/mm3 (4.5-10.0)
[2023-11-10 05:57] LABS: Alanine Aminotransferase 7 U/L (6-35); Albumin Level 3.2 g/dL (3.5-5.1); Alkaline Phosphatase 70 U/L (38-126); Anion Gap 4 mmol/L (4-12); Aspartate Amino Transferase 17 U/L (14-36); Bilirubin,Total 0.5 mg/dL (0.2-1.3); Blood Urea Nitrogen 12 mg/dL (7-17); Calcium 8.7 mg/dL (8.4-10.2); Carbon Dioxide 29 mmol/L (22-30); Chloride 104 mmol/L (98-107); Estimated CRCL calculation 68 ml/min; Estimated Glomerular Filt Rate > 60; Glucose 83 mg/dL (65-110); Magnesium 2.1 mg/dL (1.6-2.3); Potassium 4.1 mmol/L (3.4-5.0); Sodium 137 mmol/L (137-145)
[2023-11-10 06:00] VITALS: BP 148/79
[2023-11-10 09:27] VITALS: BP 135/62; PULSE 73; O2SAT 94
[2023-11-10] MEDS: ASPIRIN 81 MG ENTERIC TABLET PO (09:30)
[2023-11-10] MEDS: CALCIUM/VITAMIN D 500 MG/5 MCG (200 I.U.) TABLET PO (09:30)
[2023-11-10] MEDS: amLODIPine BESYLATE 5 MG TABLET PO (09:30)
[2023-11-10] MEDS: LOSARTAN POTASSIUM 25 MG TABLET PO (09:30)
[2023-11-10] MEDS: PANTOPRAZOLE 40 MG TABLET PO (09:30)
[2023-11-10] MEDS: ACETAMINOPHEN 325 MG TABLET 650 MG PO (09:30)
[2023-11-10] MEDS: ATORVASTATIN 20 MG TABLET PO (09:30)
[2023-11-10] MEDS: ENOXAPARIN 40 MG/0.4 ML SYRINGE SUB-Q (09:32)
[2023-11-10] MEDS: polyethylene glycoL 3350 17 GM POWD.PACK PO (09:32)
--- NOTE | 2023-11-10 12:17 | PM.CNPUL ---
Assessment and Plan Assessment and plan (1) Pleural effusion, left: Code(s): J90 - Pleural effusion, not elsewhere classified Status: Acute Assessment and Plan: Patient with a 33 pack year tobacco use, quit 2 years ago, allergic rhinitis, chest x-ray on 03/03/2023 with no left opacities or pleural effusion. Patient presents now with 1 month history of rhinorrhea, 3 weeks history of cough, 1 week history of left-sided pleuritic chest pain. CT angiogram was negative for PE with a minimal left pleural effusion and subsequent chest x-rays having shown increased size of the left consolidation consistent with atelectasis or pleural effusion. 11/10/2023:? The patient states that she is 50% better since being hospitalized but she still has left-sided pleuritic chest pain worse with deep breathing and movement.? She denies fever, chills, rigors, cough, phlegm production or hemoptysis.? She is afebrile.? White blood cell count 7.1, creatinine 0.6.?? Left-sided thoracentesis was ordered by the hospitalist. Plan: Patient currently on ceftriaxone and azithromycin day 5. Agree with these antibiotics. She is afebrile white count is decreased from 11.2-7.1 today. she is afebrile. Agree with ultrasound-guided thoracentesis and will send chemistries, cell count, pH, microbiology studies and cytology to exclude empyema and determine if her effusion is a transudate or exudate. Will follow with you. History of Present Illness History of Present Illness Consult date: 11/10/23 Chief complaint: Chest Pain Narrative: 11/10/2023:? This is a new pulmonary consult for pleural effusion.? 68-year-old with a history of hypertension, anxiety, allergic rhinitis presented with left-sided? pleura chest pain on 11/06/2023. At baseline patient states she had no breathing issues as a child or young adult. She has 5-7 years dyspnea on exertion when she exerts herself heavily.? 3-4 months ago she could walk 2-3 miles at her own pace with no respiratory limitations and this would take 1 hour.? She has no respiratory limitations in her activity of daily living.? She has no chronic cough, phlegm production or chest pains.? Patient does have allergic rhinitis in the spring and summer every year that is controlled with Benadryl.? S patient patient smoked 1 pack per day from age [age]. Patient was but exposed to secondhand smoke from her from age [age]. 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 She denies any sandblasting, welding, asbestos were, professional painting, steel hide mill man, coal mining, brick laying or construction work. One month ago patient started with rhinorrhea which is normal for her she took Benadryl but this did not help.? Three weeks ago she developed a cough and took Mucinex DM [id number] with some relief.? One week ago? she developed left-sided pleuritic chest pain and she presented to the emergency room on 11/06/2023.? She denies fever, chills, rigors, cough, phlegm production or hemoptysis. In the emergency department her white blood cell count was 11.2 with 1.5% eosinophils, creatinine 0.8, she was afebrile with room air saturations 100%.? CT angiogram of the chest showed no PE, minimal left pleural effusion with atelectasis, no interstitial lung disease, honeycombing, bronchitis, bronchiectasis, nodules or masses. Patient was admitted to the hospital and treated with ceftriaxone and azithromycin.? She remained afebrile and remained on room air.? Chest x-ray showed increased left base infiltrate consistent with pleural effusion verses atelectasis. 11/10/2023:? The patient states that she is 50% better since being hospitalized but she still has left-sided pleuritic chest pain worse with deep breathing and movement.? She denies fever, chills, rigors, cough, phlegm production or hemoptysis.? She is afebrile.? White blood cell count 7.1, creatinine 0.6.?? Left-sided thoracentesis was ordered by the hospitalist
[2023-11-10 12:44] LABS: Lactate Dehydrogenase 167 U/L (120-246); NT Pro B Type Natriuretic Pept 208 pg/mL (19.9-100)
--- NOTE | 2023-11-10 13:47 | PM.IMPN ---
Progress Note: A&P Assessment and Plan (1) Chest pain: Code(s): R07.9 - Chest pain, unspecified Status: Acute (2) Hypertension: Code(s): I10 - Essential (primary) hypertension Status: Acute (3) Mixed hyperlipidemia: Code(s): E78.2 - Mixed hyperlipidemia Status: Acute (4) Anxiety: Code(s): F41.9 - Anxiety disorder, unspecified Status: Acute Plan This is a 68-year-old female presents to the ED with complaint of left-sided chest pain. Patient reported that pain started since 2 stay associated shortness of breath. Fell some lightheadedness. No productive cough or fever. On ED evaluation vitals were stable except for hypertension. Laboratory studies reviewed mild leukocytosis at 11.2 normal chemistry urinalysis showed no evidence of UTI. EKG with nonspecific ST-T changes. Chest x-ray with subsegmental left basilar atelectasis or consolidation. CTA showed no evidence of PE but showed some small pleural effusion atelectasis on the left side. Troponin evaluation with serial troponin remain negative. Lipase was 63 which is within normal limit. Echo 2021 with EF 60-65% mildly increased left ventricular wall thickness grade 1 diastolic dysfunction. No pulmonary hypertension. Left basilar atelectasis with some small pleural effusion noted. Incentive spirometry. Add PPI. Echo with grade 1 diastolic dysfunction. BNP is normal. DVT prophylaxis Lovenox empirically treated for underlying infection with ceftriaxone and azithromycin. Added ibuprofen for anti-inflammatory effect her chest pain is pleuritic in origin. Recheck chest x-ray two view to evaluate left-sided pleural effusion revealed mild worsening of the left-sided pleural effusion. Initially Expectant management reviewed with the patient and patient agreeable. Continue IV antibiotics. However Pain remains persistent with worsening left pleural effusion. Discussed thoracentesis and agreeable. Will also get pulmonary consultation Hypertension resume home medication amlodipine 5 mg and losartan 25 mg Hyperlipidemia atorvastatin Insomnia on trazodone p.r.n.. Subjective Date/time seen: 11/10/23 13:47 Interval history: Patient continues to have left pleuritic chest pain. Chest x-ray reviewed discuss further workup with thoracentesis. Agreeable with the plan Review of Systems Review of Systems: All systems reviewed & are unremarkable except as noted in HPI and below Exam Narrative: GENERAL: Well-appearing, well-nourished, and in no acute distress. HEAD: Normocephalic, atraumatic. EYES: PERRLA and EOMI. ENT: Nares clear, no rhinorrhea or epistaxis. Mucous membranes moist. NECK: Supple. CHEST: Clear to auscultation. No respiratory distress. Diminished breath sound on left side HEART: Regular rate and rhythm. No murmur heard. Normal peripheral pulses. ABDOMEN: Soft, nontender, nondistended, normal active bowel sounds. EXTREMITIES: Normal range of motion. No edema. SKIN: Warm, dry, no rash. NEURO: No focal deficits. Alert and oriented x3. PSYCH: Normal mood and affect. Objective Data Vital Signs Vital Signs: Vital Signs - 24 hr 11/09/23 14:00 11/09/23 20:22 11/09/23 20:00 Temperature 98.8 F 97.8 F Pulse Rate 67 70 Respiratory Rate 16 20 Blood Pressure 144/67 H 146/64 H Pulse Oximetry 94 94 Oxygen Delivery Room Air 11/10/23 05:18 11/10/23 06:00 11/10/23 09:27 Temperature 97.8 F Pulse Rate 67 73 Respiratory Rate 20 Blood Pressure 188/65 H 148/79 H 135/62 Pulse Oximetry 94 94 Oxygen Delivery 11/10/23 09:30 Temperature Pulse Rate Respiratory Rate Blood Pressure Pulse Oximetry Oxygen Delivery Room Air Intake/Output Intake/Output: Intake & Output 11/07/23 11/08/23 11/09/23 11/10/23 23:59 23:59 23:59 23:59 Intake Total 1220 1198.3 650 790 Balance 1220 1198.3 650 790 Meds/Results Medications: Active Medications Generic Name Dose Route Start Last Adm
[2023-11-10 14:00] VITALS: BP 151/70; PULSE 67; RESP 16; TEMP 36.7; O2SAT 93
[2023-11-10 17:03] LABS: pH Pleural Fluid > 7.500 (7.210-7.500)
[2023-11-10] MEDS: AZITHROMYCIN 500 MG/NS 250 ML 500 MG/250 ML BAG 250 MG IVPB (17:39)
[2023-11-10 19:12] LABS: Pleural fluid source Pleural fluid
[2023-11-10 19:13] LABS: Appearance Pleural Fluid Cloudy (Clear); Color Pleural Fluid Yellow (Colorless)
[2023-11-10 19:14] LABS: Lymphocytes Pleural Fluid 46 %; Macrophages Pleural Fluid 18 %; Mesothelial Cells Pleural Flui 9 %; Nucleated Cell Pleural Fluid 6081 /uL (0-1000); RBC Pleural Fluid 5000 /uL (0-10000)
[2023-11-10 19:15] LABS: Neutrophils Pleural Fluid 27 % (0-25)
[2023-11-10 20:30] VITALS: BP 140/62; PULSE 77; RESP 20; TEMP 36.5; O2SAT 97
[2023-11-10] MEDS: traZODone HCL 50 MG TABLET PO (22:22)
[2023-11-11 05:41] VITALS: BP 153/62; PULSE 64; RESP 20; TEMP 36.6; O2SAT 94
--- NOTE | 2023-11-11 08:16 | PM.PNPUL ---
Progress Note: A&P Assessment and Plan (1) Pleural effusion, left: Code(s): J90 - Pleural effusion, not elsewhere classified Status: Acute Assessment and Plan: Patient with a 33 pack year tobacco use, quit 2 years ago, allergic rhinitis, chest x-ray on 03/03/2023 with no left opacities or pleural effusion. Patient presents now with 1 month history of rhinorrhea, 3 weeks history of cough, 1 week history of left-sided pleuritic chest pain. CT angiogram was negative for PE with a minimal left pleural effusion and subsequent chest x-rays having shown increased size of the left consolidation consistent with atelectasis or pleural effusion. 11/10/2023:? The patient states that she is 50% better since being hospitalized but she still has left-sided pleuritic chest pain worse with deep breathing and movement.? She denies fever, chills, rigors, cough, phlegm production or hemoptysis.? She is afebrile.? White blood cell count 7.1, creatinine 0.6.?? Left-sided thoracentesis was ordered by the hospitalist. Plan: Patient currently on ceftriaxone and azithromycin day 5. Agree with these antibiotics. She is afebrile white count is decreased from 11.2-7.1 today. she is afebrile. Agree with ultrasound-guided thoracentesis and will send chemistries, cell count, pH, microbiology studies and cytology to exclude empyema and determine if her effusion is a transudate or exudate. later in the day, left thoracentesis with 200 mL of yellow fluid removed. she tells me she had minimal change in her left pleuritic pain after the fluid was removed. G stain white blood cells with no organisms seen. PH greater than 7.50, cell differential: 6081 white blood cells, neutrophils 27%, lymphocytes 46%, macrophages 18%, mesothelial cells 9%. 11/11/2023: Patient continues to slowly improve. She tells me she has 60% back to her normal. She still has pain on inspiration on the left side that is minimally improved. She denies cough, phlegm, fever, chills, rigors or hemoptysis. Incentive spirometry is 1200 mL. Chest x-ray today is similar to post thoracentesis with a small to moderate left opacity consistent with pleural effusion and or infiltrate. Plan: she has completed 5 days of azithromycin. Today is day 6 of ceftriaxone. clinically she has improved, afebrile, no evidence of empyema on her left pleural effusion. Chemistries, cultures, cytology are pending. I will check a chest x-ray in the morning. I will order physical therapy for OOB and ambulation. If she remains clinically stable will consider discharge on 11/11 on these pulmonary medications. Levofloxacin 750 mg p.o. q.day x7 days. Will follow with you. Subjective Date/time seen: 11/11/23 08:16 Interval history: 11/10/2023:? This is a new pulmonary consult for pleural effusion.? 68-year-old with a history of hypertension, anxiety, allergic rhinitis presented with left-sided? pleura chest pain on 11/06/2023. At baseline patient states she had no breathing issues as a child or young adult. She has 5-7 years dyspnea on exertion when she exerts herself heavily.? 3-4 months ago she could walk 2-3 miles at her own pace with no respiratory limitations and this would take 1 hour.? She has no respiratory limitations in her activity of daily living.? She has no chronic cough, phlegm production or chest pains.? Patient does have allergic rhinitis in the spring and summer every year that is controlled with Benadryl.? S patient patient smoked 1 pack per day from age [age]. Patient was but exposed to secondhand smoke from her from age [age]. 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 One month ago patient started with rhinorrhea which is normal for her she took Benadryl but this did not help.? Three weeks ago she developed a co
[2023-11-11 08:41] VITALS: BP 159/56; PULSE 68; O2SAT 96
[2023-11-11] MEDS: CALCIUM/VITAMIN D 500 MG/5 MCG (200 I.U.) TABLET PO (08:44)
[2023-11-11] MEDS: PANTOPRAZOLE 40 MG TABLET PO (08:44)
[2023-11-11] MEDS: ASPIRIN 81 MG ENTERIC TABLET PO (08:44)
[2023-11-11] MEDS: LOSARTAN POTASSIUM 25 MG TABLET PO (08:45)
[2023-11-11] MEDS: ATORVASTATIN 20 MG TABLET PO (08:45)
[2023-11-11] MEDS: amLODIPine BESYLATE 5 MG TABLET PO (08:45)
[2023-11-11] MEDS: polyethylene glycoL 3350 17 GM POWD.PACK PO (08:46)
[2023-11-11] MEDS: ENOXAPARIN 40 MG/0.4 ML SYRINGE SUB-Q (08:46)
[2023-11-11] MEDS: ACETAMINOPHEN 325 MG TABLET 650 MG PO (12:20)
--- NOTE | 2023-11-11 13:03 | PCPTNOTE ---
Attempted PT evaluation, pt reports being independent in the room and plans to walk the halls this afternoon. RN aware. Discharged therapy orders.
--- NOTE | 2023-11-11 13:07 | PM.IMPN ---
Progress Note: A&P Assessment and Plan (1) Chest pain: Code(s): R07.9 - Chest pain, unspecified Status: Acute Assessment and Plan: resolved likely secondary to effusion see notes below (2) Hypertension: Code(s): I10 - Essential (primary) hypertension Status: Acute Assessment and Plan: Hypertension resume home medication amlodipine 5 mg and losartan 25 mg (3) Mixed hyperlipidemia: Code(s): E78.2 - Mixed hyperlipidemia Status: Acute Assessment and Plan: Hyperlipidemia atorvastatin (4) Anxiety: Code(s): F41.9 - Anxiety disorder, unspecified Status: Acute Assessment and Plan: Insomnia on trazodone p.r.n.. (5) Pleural effusion, left: Code(s): J90 - Pleural effusion, not elsewhere classified Status: Acute Assessment and Plan: This is a 68-year-old female presents to the ED with complaint of left-sided chest pain. Patient reported that pain started since 2 stay associated shortness of breath. Fell some lightheadedness. No productive cough or fever. On ED evaluation vitals were stable except for hypertension. Laboratory studies reviewed mild leukocytosis at 11.2 normal chemistry urinalysis showed no evidence of UTI. EKG with nonspecific ST-T changes. Chest x-ray with subsegmental left basilar atelectasis or consolidation. CTA showed no evidence of PE but showed some small pleural effusion atelectasis on the left side. Troponin evaluation with serial troponin remain negative. Lipase was 63 which is within normal limit. Echo 2021 with EF 60-65% mildly increased left ventricular wall thickness grade 1 diastolic dysfunction. No pulmonary hypertension. Left basilar atelectasis with some small pleural effusion noted. Incentive spirometry. Add PPI. Echo with grade 1 diastolic dysfunction. BNP is normal. DVT prophylaxis Lovenox empirically treated for underlying infection with ceftriaxone and azithromycin. Added ibuprofen for anti-inflammatory effect her chest pain is pleuritic in origin. Recheck chest x-ray two view to evaluate left-sided pleural effusion revealed mild worsening of the left-sided pleural effusion. Initially Expectant management reviewed with the patient and patient agreeable. Continue IV antibiotics. However Pain remains persistent with worsening left pleural effusion. Pulmonology on board Sp thoracentesis Pain control and transition to oral ABX ok to DC [place] Subjective Date/time seen: 11/11/23 13:07 Interval history: Pt transitioned to oral ABX plan to Dc tomorrow Sp Left-sided thoracentesis Pt feels tired L sided chest pain milder today Review of Systems Review of Systems: Tiredness mild L sided chest pain Exam Narrative: GENERAL: Well-appearing, well-nourished, and in no acute distress. HEAD: Normocephalic, atraumatic. EYES: PERRLA and EOMI. ENT: Nares clear, no rhinorrhea or epistaxis. Mucous membranes moist. NECK: Supple. CHEST: Clear to auscultation. No respiratory distress. Diminished breath sound on left side HEART: Regular rate and rhythm. No murmur heard. Normal peripheral pulses. ABDOMEN: Soft, nontender, nondistended, normal active bowel sounds. EXTREMITIES: Normal range of motion. No edema. SKIN: Warm, dry, no rash. NEURO: No focal deficits. Alert and oriented x3. PSYCH: Normal mood and affect. Objective Data Vital Signs Vital Signs: Vital Signs - 24 hr 11/10/23 14:00 11/10/23 20:30 11/10/23 20:00 Temperature 36.7 C 36.5 C Pulse Rate 67 77 Respiratory Rate 16 20 Blood Pressure 151/70 H 140/62 Pulse Oximetry 93 97 Oxygen Delivery Room Air 11/11/23 05:41 11/11/23 08:41 11/11/23 08:45 Temperature 36.6 C Pulse Rate 64 68 Respiratory Rate 20 Blood Pressure 153/62 H 159/56 H Pulse Oximetry 94 96 Oxygen Delivery Room Air Intake/Output Intake/Output: Intake & Output 11/08/23 11/09/23 11/10/23 11/11/23 23:59 23:59 23:59 23:5
[2023-11-11] MEDS: levoFLOXacin 750 MG TABLET PO (13:40)
--- NOTE | 2023-11-11 14:00 | PCOTNOTE ---
Attempted OT evaluation, pt reports being independent in the room and plans to walk the halls this afternoon. RN aware. Discharged therapy orders.
[2023-11-11 19:49] VITALS: BP 167/74; PULSE 73; RESP 18; TEMP 36.6; O2SAT 97
[2023-11-11] MEDS: traZODone HCL 50 MG TABLET PO (22:20)
[2023-11-11] MEDS: HYDROcodone/acetaminophen (*CRX) 5-325 MG TABLET 1 TAB PO (22:20)
[2023-11-12 05:25] VITALS: BP 159/96; PULSE 65; RESP 18; TEMP 35.7; O2SAT 95
[2023-11-12 07:16] LABS: Hematocrit 39.4 % (37.0-47.0); Hemoglobin 13.2 g/dL (12.0-15.0); Mean Corpuscular HGB Conc 33.5 g/dl (32-36); Mean Corpuscular Hemoglobin 27.7 pg (26-34); Mean Corpuscular Volume 82.8 fl (80-100); Platelet Count Result 308 k/mm3 (150-375); Red Blood Count 4.76 M/mm3 (4.2-5.4); Red Cell Distribution Width 11.9 % (11.5-14.5); White Blood Count 5.8 K/mm3 (4.5-10.0)
[2023-11-12 07:28] LABS: Anion Gap 3 mmol/L (4-12); Blood Urea Nitrogen 14 mg/dL (7-17); Calcium 9.1 mg/dL (8.4-10.2); Carbon Dioxide 30 mmol/L (22-30); Chloride 106 mmol/L (98-107); Estimated CRCL calculation 60 ml/min; Estimated Glomerular Filt Rate > 60; Glucose 81 mg/dL (65-110); Potassium 4.3 mmol/L (3.4-5.0); Sodium 139 mmol/L (137-145)
[2023-11-12] MEDS: CALCIUM/VITAMIN D 500 MG/5 MCG (200 I.U.) TABLET PO (08:54)
[2023-11-12] MEDS: ATORVASTATIN 20 MG TABLET PO (08:54)
[2023-11-12] MEDS: PANTOPRAZOLE 40 MG TABLET PO (08:55)
[2023-11-12] MEDS: LOSARTAN POTASSIUM 25 MG TABLET PO (08:55)
[2023-11-12] MEDS: ENOXAPARIN 40 MG/0.4 ML SYRINGE SUB-Q (08:55)
[2023-11-12] MEDS: amLODIPine BESYLATE 5 MG TABLET PO (08:55)
[2023-11-12] MEDS: ASPIRIN 81 MG ENTERIC TABLET PO (08:55)
--- NOTE | 2023-11-12 10:13 | PM.PNPUL ---
Progress Note: A&P Assessment and Plan (1) Pleural effusion, left: Code(s): J90 - Pleural effusion, not elsewhere classified Status: Acute Assessment and Plan: Patient with a 33 pack year tobacco use, quit 2 years ago, allergic rhinitis, chest x-ray on 03/03/2023 with no left opacities or pleural effusion. Patient presents now with 1 month history of rhinorrhea, 3 weeks history of cough, 1 week history of left-sided pleuritic chest pain. CT angiogram was negative for PE with a minimal left pleural effusion and subsequent chest x-rays having shown increased size of the left consolidation consistent with atelectasis or pleural effusion. 11/10/2023:? The patient states that she is 50% better since being hospitalized but she still has left-sided pleuritic chest pain worse with deep breathing and movement.? She denies fever, chills, rigors, cough, phlegm production or hemoptysis.? She is afebrile.? White blood cell count 7.1, creatinine 0.6.?? Left-sided thoracentesis was ordered by the hospitalist. Plan: Patient currently on ceftriaxone and azithromycin day 5. Agree with these antibiotics. She is afebrile white count is decreased from 11.2-7.1 today. she is afebrile. Agree with ultrasound-guided thoracentesis and will send chemistries, cell count, pH, microbiology studies and cytology to exclude empyema and determine if her effusion is a transudate or exudate. later in the day, left thoracentesis with 200 mL of yellow fluid removed. she tells me she had minimal change in her left pleuritic pain after the fluid was removed. G stain white blood cells with no organisms seen. PH greater than 7.50, cell differential: 6081 white blood cells, neutrophils 27%, lymphocytes 46%, macrophages 18%, mesothelial cells 9%. 11/11/2023: Patient continues to slowly improve. She tells me she has 60% back to her normal. She still has pain on inspiration on the left side that is minimally improved. She denies cough, phlegm, fever, chills, rigors or hemoptysis. Incentive spirometry is 1200 mL. Chest x-ray today is similar to post thoracentesis with a small to moderate left opacity consistent with pleural effusion and or infiltrate. Plan: she has completed 5 days of azithromycin. Today is day 6 of ceftriaxone. clinically she has improved, afebrile, no evidence of empyema on her left pleural effusion. Chemistries, cultures, cytology are pending. I will check a chest x-ray in the morning. I will order physical therapy for OOB and ambulation. 11/12/2023: Overall the patient feels about the same. She has 60% back to her baseline. She has ambulated in the hallway. She continues with right-sided pleuritic pain that is unchanged without cough, phlegm or hemoptysis. She is afebrile. White blood cell count 5.8, creatinine 0.8. Room air saturations are 95%. Chest x-ray this morning showed improved left lower lobe consolidation and effusion. Cytology on the pleural fluid is negative. Pleural fluid cultures remain negative. Currently her left effusion is a noninfected, cytology negative, lymphocytic pleural effusion. Remainder of chemistries and microbiology studies are pending. Plan: From a pulmonary perspective patient is ready to be discharged on these pulmonary medications. Levofloxacin 750 mg p.o. q.day x6 days. Patient should follow-up with her PCP and have a repeat chest x-ray in 3-6 weeks to follow her left lower lobe infiltrate and effusion. Discussed with Dr. Jansen. Will sign off. Call with questions. Subjective Date/time seen: 11/12/23 10:13 Interval history: 11/10/2023:? This is a new pulmonary consult for pleural effusion.? 68-year-old with a history of hypertension, anxiety, allergic rhinitis presented with left-sided? pleura chest pain on 11/06/2023. At baseline patient states she had no breathing issues as a child or young adult. She has 5-7 years dyspnea on exertion when she exerts herself hea
[2023-11-12] MEDS: levoFLOXacin 750 MG TABLET PO (13:23)
[2023-11-12 14:00] VITALS: BP 152/83; PULSE 78; RESP 18; TEMP 36.4; O2SAT 98
--- NOTE | 2023-11-12 14:14 | PM.DS ---
DS: Admitting Diagnosis Discharge Date 11/12/23 Admitting Diagnosis Left sided chest pain DS: Discharge Diagnosis Discharge Diagnosis (1) Chest pain: Code(s): R07.9 - Chest pain, unspecified Status: Acute (2) Hypertension: Code(s): I10 - Essential (primary) hypertension Status: Acute (3) Mixed hyperlipidemia: Code(s): E78.2 - Mixed hyperlipidemia Status: Acute (4) Anxiety: Code(s): F41.9 - Anxiety disorder, unspecified Status: Acute (5) Pleural effusion, left: Code(s): J90 - Pleural effusion, not elsewhere classified Status: Acute DS: Summary Hospital Course Reason for hospitalization: 68yo female with HTN who presents with complaints of left sided pleuritic julius pain. Please see H&P for details. Hospital Course: On ED evaluation, vital signs were stable except for hypertension. Laboratory studies showing WBC 11.2, bicarb 20 and sodium 136. UA showing 2+ blood, trace LE, 0-2 RBC and 6-10 WBC. UCx mixed genital danish. Troponin negative x3. Lipase normal. EKG showing sinus mechanism with possible LAE and LVH. Repeat EKG showing similar findings. CXR showing subsegmental left basilar atelectasis or consolidation. CTA chest showed no evidence of PE but showed minimal left pleural effusion with left basilar atelectic changes. Echo with EF 60-65%, grade 1 diastolic dysfunction and trace valvular disease. No pulmonary hypertension. She was treated for pleurisy. Rocephin and Azithromycin added. Serial CXRs showing worsening left lower lobe airspace disease and pleural effusion. Pulmonary consulted. Patient under thoracentesis with removal of 200mL of yellow fluid. Studies showing 5K RBC, 6K WBC with 27%R neutrophils, 46% lymphocytes. Pleural pH>7.5. Pathology was negative for malignancy. Other testing pending. Gram stain positive for WBC but no microorganisms. No acid-fast bacilli. Cultures are no growth. She had clinical improvement. Chest pain improved. She overall did well and was able to be discharged home on 11/12/23. Status at Discharge Cognitive/behavioral status at discharge: stable Time Spent with Patient Time attestation: Total time spent providing and/or coordinating discharge services: 34 minutes Time spent: Greater than 30 minutes Exam Narrative: AF 96.3 159/96 65 18 95 % ra Gen - NARD Chest - CTA bilaterally, nml RR CV - RRR S1/S2 Abd - Soft, NT/ND, Positive BS Ext - No pedal edema Psych - Nml mood and affect Skin - Warm and dry Neuro - up walking in the room unassisted DS: Data Data Completed and Pending Pending studies at discharge: Pending at discharge 11/10/23 11:41 Cytology [PTH] Routine Labs on day of discharge: Labs from last 24 hours 11/12/23 06:49 WBC 5.8 RBC 4.76 Hgb 13.2 Hct 39.4 MCV 82.8 MCH 27.7 MCHC 33.5 RDW 11.9 Plt Count 308 MPV 10.0 Sodium 139 Potassium 4.3 Chloride 106 Carbon Dioxide 30 Anion Gap 3 L BUN 14 Creatinine 0.80 Estim Creat Clear Calc 60 Estimated GFR > 60 Glucose 81 Calcium 9.1 Preliminary micro results at discharge 11/10/23 16:11 Anaerobic Culture - Preliminary Pleural Fluid Aerobic Culture - Preliminary Fungal Culture - Preliminary 11/10/23 16:12 Acid Fast Bacilli Culture - Preliminary Pleural Fluid Discharge Plan Discharge Attending physician on discharge: Vamshi Jansen Consulting providers: Kwesi Paz Discharging Clinician: Vamshi Jansen Anticipated Discharge Date/Time: 11/12/23 14:31 Patient Disposition: Home, Self-Care Activity: as tolerated Diet: heart healthy Discharge Instructions: Check blood pressure 1 to 2 times a day. Record and bring into your doctor for review. Call your doctor if your blood pressure is greater than 180/110. Please complete your antibiotic course even if you are starting to feel well. Take precautions to avoid falls. Rise slowly from a lying or
[2023-11-12 22:53] LABS: Pneumococcal Antigen Urine NOT DETECTED
[2023-11-14 17:24] LABS: Mycoplasma IgM Antibody Titer 585 U/mL
[2023-11-14 20:13] LABS: Albumin Pleural Fluid 2.2 g/dL; Amylase, Pleural Fluid 10 U/L; Glucose Pleural Fluid 88 mg/dL; LDH Pleural Fluid 640 U/L; Total Protein Pleural Fluid 3.6 g/dL
[2023-11-17 03:18] LABS: Legionella pneumophila Ag Ur NOT DETECTED
--- NOTE | 2023-11-20 08:10 | PC.NURSE ---
urine legionella Ag- not detected Urine pnemococcal Ag- not detected Mycoplasm- 585 Body fluid cx are negative Pathology shows Chronic Pleuritis Plural fluid is WNL for all areas. Dr. Justyna garibay.
--- NOTE | 2023-12-29 08:24 | PC.NURSE ---
All labs faxed to Dr. Paz per Dr. Jansen request.
== END 2023-11-12 15:05 | disposition home or self-care (01) | DRG 188 ==
LOC: ANHED 11-06 06:34 → ANHIMU 11-06 07:21 → ANH2MED 11-06 20:13 → ANH3MEDSUR 11-11 22:00
PROVIDERS: Family Medicine; Internal Medicine; Internal Medicine Pulmonary Disease; Admitting Provider Internal Medicine; Emergency Provider Emergency Medicine; PCP Family Medicine; Visit Provider Internal Medicine
DX: J90 Pleural effusion, not elsewhere classified (principal); I12.9 Hypertensive chronic kidney disease with stage 1 through stage 4 chronic kidney disease, or unspecified chronic kidney disease; N18.9 Chronic kidney disease, unspecified; E78.2 Mixed hyperlipidemia; F41.9 Anxiety disorder, unspecified; Z87.891 Personal history of nicotine dependence; Z79.82 Long term (current) use of aspirin
CPT/HCPCS: 32555; 36415; 71045; 71046; 71275; 80048; 80053; 81001; 82042; 82150; 82945; 83615; 83690; 83735; 83880; 83986; 84157; 84311; 84478; 84484; 85025; 85027; 85610; 85730; 86738; 87015; 87070; 87075; 87086; 87088; 87102; 87116; 87205; 87206; 87449; 87899; 88108; 88305; 89051; 93005; 93306; 96365; 96366; 96367; 96372; 96375; 99285; A9270; G0378; J0456; J0696; J1650; J1940; Q9967

== ENCOUNTER 2024-05-13 12:40 | Outpatient (CLI) | payer MEDICARE, SELFPAY ==
--- NOTE | ~2024-05-13 | MM_ITS ---
EXAMINATION: MM screening eduar BI w sameera HISTORY: Screening mammogram, family history of breast cancer in her mother. TECHNIQUE: Craniocaudal and mediolateral oblique 3-D tomosynthesis images were obtained and synthetic 2-D images were generated. CAD analysis was submitted and interpreted. COMPARISON: 11/03/2023, 04/30/2023 BREAST PARENCHYMAL COMPOSITION:Not Dense. There are scattered areas of fibroglandular density. FINDINGS: Stable subtle low-density mass of the upper left breast. No suspicious mass, calcification, or architectural distortion are identified in either breast to suggest malignancy. There has been no suspicious interval change. IMPRESSION: No mammographic evidence of malignancy. Recommend routine screening mammography in one year. BI-RADS Category 2: Benign finding(s). Reviewed, dictated and finalized at [facility]. ERMAN OPERATOR
--- NOTE | ~2024-05-13 | US_ITS ---
EXAMINATION TYPE: US breast RT limited COMPARISON: 11/03/2023 REASON FOR STUDY: R92.8 - Other abnormal and inconclusive findings on diagn... TECHNIQUE: Targeted sonographic evaluation of the right breast was performed. INTERPRETATION: At the 9:00 position right breast, 5 cm from the nipple, there is a stable 3 mm hypoechoic round mass . There is an additional adjacent 3 mm ovoid hypoechoic mass. At the 9:00 position right breast, 3 cm from the nipple, there is an additional 4 mm parallel hypoechoic circumscribed mass. IMPRESSION: Subcentimeter hypoechoic lesions in the right breast at the 9:00 region are stable to decreased in si ze from prior exam, most compatible with benign findings. BI-RADS CATEGORY: BI-RADS 2: Benign Reviewed, dictated and finalized at [facility]. HEALTH CLINICAL SUPERVISOR IMPRESSION: Subcentimeter hypoechoic lesions in the right breast at the 9:00 region are sta ble to decreased in size from prior exam, most compatible with benign findings. BI-RADS CATEGORY: BI-RADS 2: Benign
== END 2024-05-13 12:41 | disposition home or self-care (01) ==
PROVIDERS: PCP Family Medicine; Visit Provider Family Medicine
DX: Z12.31 Encounter for screening mammogram for malignant neoplasm of breast (principal); R92.8 Other abnormal and inconclusive findings on diagnostic imaging of breast
CPT/HCPCS: 76642; 77063; 77067